=== PATIENT | female | born 1970 | race Caucasian/White ===

== ENCOUNTER 2016-10-27 11:52 | Emergency (ER) | payer MEDICARE, BC ==
[2016-10-27] MEDS ORDERED: Ondansetron 4 MG/2 ML SDV IVPUSH ONE (12:26)
[2016-10-27] MEDS ORDERED: Sodium Chloride 0.9% 1,000 ML IV ONE (12:26)
[2016-10-27] MEDS ORDERED: LORazepam 2 MG/ML MDV IVPUSH ONE (13:20)
--- NOTE | 2016-10-27 13:50 | EDM.PDOC ---
ED HPI GENERAL MEDICAL PROBLEM - General Chief Complaint: General Stated Complaint: RT SIDE PAIN Time Seen by Provider: 10/27/16 12:20 Source of Information: Reports: Patient History Limitations: Reports: No limitations - History of Present Illness INITIAL COMMENTS - FREE TEXT/NARRATIVE: History of present illness: [45-year-old female presenting with acute onset right-sided flank pain patient indicates it started in her right groin and radiated around to her back flank. Patient does acknowledge that this happens when she gets a urinary tract infection. Patient also indicates that she had so much pain today she was unable to take her routine pain medication.] Review of systems: As per history of present illness and below otherwise all systems reviewed and negative. Past medical history: As per history of present illness and as reviewed below otherwise noncontributory. Surgical history: As per history of present illness and as reviewed below otherwise noncontributory. Social history: No reported history of drug or alcohol abuse. Family history: As per history of present illness and as reviewed below otherwise noncontributory. Physical exam: HEENT: Atraumatic, normocephalic, pupils reactive, negative for conjunctival pallor or scleral icterus, mucous membranes moist, throat clear, neck supple, nontender, trachea midline. Lungs: Clear to auscultation, breath sounds equal bilaterally, chest nontender. Heart: S1S2, regular, negative for clicks, rubs, or JVD. Abdomen: Soft, nondistended, nontender. Negative for masses or hepatosplenomegaly. Negative for costovertebral tenderness. Pelvis: Stable nontender. Genitourinary: Deferred. Rectal: Deferred. Extremities: Atraumatic, negative for cords or calf pain. Neurovascular unremarkable. Neuro: Awake, alert, oriented. Cranial nerves II through XII unremarkable. Cerebellum unremarkable. Motor and sensory unremarkable throughout. Exam nonfocal. All assessment is benign save subjective statements of pain in groin and flank. No costovertebral tenderness as noted above and patient's history of present illness is consistent with history of UTIs that she also indicates are not uncommon for her. Patient without any vomiting while in the ED for almost [address] negative, U A. A-, CBC and CMP without note. Diagnostics: [UA, CT without contrast, CBC, CMP] Therapeutics: [] Impression: [Nausea, abdominal pain] Plan: [Zofran followup with his] Definitive disposition and diagnosis as appropriate pending reevaluation and review of above. - Related Data Allergies Allergy/AdvReac Type Severity Reaction Status Date / Time No Known Allergies Allergy Verified 10/27/16 12:14 Home Meds: Home Meds Gabapentin [Neurontin] 600 mg PO BID@0800,1200 06/30/14 [History] Mycophenolate Mofetil [Cellcept] 1,000 mg PO BID 06/30/14 [History] Ondansetron HCl [Zofran] 1 tab PO BID PRN 06/30/14 [History] HYDROmorphone HCl [Dilaudid] 4 mg PO DAILY PRN 04/09/16 [History] predniSONE 10 mg PO DAILY 05/26/16 [History] Citalopram Hydrobromide [Celexa] 40 mg PO DAILY 05/27/16 [History] Gabapentin [Neurontin] 900 mg PO BEDTIME 05/27/16 [History] Pantoprazole [Protonix] 40 mg PO DAILY 05/27/16 [History] Warfarin [Coumadin] 8 mg PO DAILY 05/27/16 [History] Warfarin [Coumadin] 9 mg PO DAILY 05/27/16 [History] oxyCODONE HCl [Oxycodone HCl] 10 mg PO TID 05/27/16 [History] valACYclovir HCl [valACYclovir] 1 gm PO TID PRN 05/27/16 [History] Past Medical History HEENT History: Reports: Sinusitis Cardiovascular History: Reports: Blood clots/VTE/DVT Respiratory History: Reports: PE Gastrointestinal History: Reports: None Genitourinary History: Reports: None 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 Musculoskeletal History: Reports: None Neurological History: Reports: CVA Psychiatric History: Reports: Anxiety Endocrine/Metabolic History: Reports: None Hematologic History: Reports: Anemia Immunologic History: Reports: SLE, Other (see below) Other Immunologic History: Lupus Oncologic (Cancer) History: Reports: Other (see below) Other Oncologic History: precancer cells, melanoma Dermatologic History: Reports: None - Infectious Disease History Infectious Disease History: Reports: Herpes - Past Surgical History Head Surgeries/Procedures: Reports: None HEENT Surgical History: Reports: None Cardiovascular Surgical History: Reports: None GI Surgical History: Reports: None Musculoskeletal Surgical History: Reports: Other (see below) Other Musculoskeletal Surgeries/Procedures:: hand surgery Social & Family History - Family History Family Medical History: Noncontributory HEENT: Reports: None Cardiac: Reports: None Respiratory: Reports: None GI: Reports: None : Reports: None OBGYN: Reports: None Musculoskeletal: Reports: None Neurological: Reports: None Psychiatric: Reports: None Endocrine/Metabolic: Reports: None Hematologic: Reports: None Immunologic: Reports: None Dermatologic: Reports: None Oncologic: Reports: None - Tobacco Use Smoking Status *Q: Never Smoker Second Hand Smoke Exposure: No - Caffeine Use Caffeine Use: Reports: Coffee Other Caffeine Use: occasionally - Alcohol Use Days Per Week of Alcohol Use: 0 - Recreational Drug Use Recreational Drug Use: No ED ROS GENERAL - Review of Systems Review Of Systems: See Below (See history of present illness) ED EXAM, GENERAL - Physical Exam Exam: See Below (See history of present illness) Course - Vital Signs Last Recorded V/S: Last Vital Signs Temp 36.3 C 10/27/16 12:15 Pulse 70 10/27/16 12:15 Resp 24 H 10/27/16 12:15 BP 144/94 H 10/27/16 12:15 Pulse Ox 98 10/27/16 12:15 - Orders/Labs/Meds Orders: Active Orders 24 hr Category Date Time Status Abdomen Pelvis w Cont [CT] Stat Exams 10/27/16 14:37 Taken Labs: Laboratory Tests 10/27/16 10/27/16 10/27/16 Range/Units 12:49 13:30 13:30 WBC 6.41 (4.0-11.0) K/uL RBC 4.38 (4.30-5.90) M/uL Hgb 12.0 (12.0-16.0) g/dL Hct 34.1 L (36.0-46.0) % MCV 77.9 L (80.0-98.0) fL MCH 27.4 (27.0-32.0) pg MCHC 35.2 (31.0-37.0) g/dL RDW Std Deviation 48.8 (28.0-62.0) fl RDW Coeff of Elizabet 18 H (11.0-15.0) % Plt Count 143 L (150-400) K/uL MPV 9.70 (7.40-12.00) fL Neut % (Auto) 72.9 (48.0-80.0) % Lymph % (Auto) 20.1 (16.0-40.0) % [place] % (Auto) 6.2 (0.0-15.0) % Eos % (Auto) 0.5 (0.0-7.0) % Baso % (Auto) 0.3 (0.0-1.5) % Neut # (Auto) 4.7 (1.4-5.7) K/uL Lymph # (Auto) 1.3 (0.6-2.4) K/uL [place] # (Auto) 0.4 (0.0-0.8) K/uL Eos # (Auto) 0.0 (0.0-0.7) K/uL Baso # (Auto) 0.0 (0.0-0.1) K/uL Nucleated RBC % 0.0 /100WBC Nucleated RBCs # 0 K/uL Sodium 140 (136-146) mmol/L Potassium 3.7 (3.5-5.1) mmol/L Chloride 109 (98-110) mmol/L Carbon Dioxide 18 L (21-31) mmol/L BUN 10 (6.0-23.0) mg/dL Creatinine 0.9 (0.6-1.5) mg/dL Est Cr Clr Drug Dosing 73.90 mL/min Estimated GFR (MDRD) > 60.0 ml/min Glucose 99 (60-110) mg/dL Calcium 9.0 (8.8-10.8) mg/dL Total Bilirubin 1.7 H (0.1-1.5) mg/dL AST 21 (5-40) IU/L ALT 32 (8-54) IU/L Alkaline Phosphatase 53 (40-150) Total Protein 6.6 (6.0-8.0) g/dL Albumin 3.8 (3.5-5.0) g/dL Globulin 2.8 (2.0-3.5) g/dL Albumin/Globulin Ratio 1.4 (1.3-2.8) Urine Color YELLOW Urine Appearance CLEAR Urine pH 8.0 (5.0-8.0) Ur Specific [place] 1.010 (1.001-1.035) Urine Protein NEGATIVE (NEGATIVE) mg/dL Urine Glucose (UA) NEGATIVE (NEGATIVE) mg/dL Urine Ketones NEGATIVE (NEGATIVE) mg/dL Urine Occult Blood NEGATIVE (NEGATIVE) Urine Nitrite NEGATIVE (NEGATIVE) Urine Bilirubin NEGATIVE (NEGATIVE) Urine Urobilinogen 0.2 (<2.0) EU/dL Ur Leukocyte Esterase NEGATIVE (NEGATIVE) Urine RBC 0-1 (0-2/HPF) Urine WBC 0-1 (0-5/HPF) Ur Epithelial Cells FEW (NONE-FEW) Urine Bacteria RARE (NEGATIVE) Meds: Medications Discontinued Medications Generic Name Dose Route Start Last Admin Trade Name Frerocky PRN Reason Stop Dose Admin Sodium Chloride 1,000 mls @ 999 mls/hr 10/27/16 12:26 10/27/16 13:08 Normal Saline IV 10/27/16 13:26 999 mls/hr STAT ONE Administration Iopamidol 100 ml 10/27/16 14:40 10/27/16 14:41 Isovue Multipack-370 (76%) IVPUSH 10/27/16 14:41 100 ml ONETIME STA Administration Lorazepam 1 mg 10/27/16 13:20 10/27/16 13:35 Ativan IVPUSH 10/27/16 13:21 1 mg ONETIME ONE Administration Metoclopramide HCl 5 mg 10/27/16 15:52 Reglan IVPUSH 10/27/16 15:53 ONETIME ONE Ondansetron HCl 8 mg 10/27/16 12:26 10/27/16 13:08 Zofran IVPUSH 10/27/16 12:27 8 mg ONETIME ONE Administration Orphenadrine Citrate 60 mg 10/27/16 14:45 10/27/16 15:01 Norflex IM 10/27/16 14:46 60 mg ONETIME ONE Administration Prochlorperazine Edisylate 5 mg 10/27/16 15:14 10/27/16 16:00 Compazine IVPUSH 10/27/16 15:15 5 mg ONETIME ONE Administration Promethazine HCl 25 mg 10/27/16 15:53 Phenergan IM 10/27/16 15:54 ONETIME ONE Departure - Departure Time of Disposition: 16:45 Disposition: Home, Self-Care 01 Condition: good Clinical Impression: Pain Forms: ED Department Discharge Additional Instructions: The following information is given to patients seen in the emergency department who are being discharged to home. This information is to outline your options for follow-up care. We provide all patients seen in our emergency department with a follow-up referral. The need for follow-up, as well as the timing and circumstances, are variable depending upon the specifics of your emergency department visit. If you don't have a primary care physician on staff, we will provide you with a referral. We always advise you to contact your personal physician following an emergency department visit to inform them of the circumstance of the visit and for follow-up with them and/or the need for any referrals to a consulting specialist. The emergency department will also refer you to a specialist when appropriate. This referral assures that you have the opportunity for follow-up care with a specialist. All of these measure are taken in an effort to provide you with optimal care, which includes your follow-up. Under all circumstances we always encourage you to contact your private physician who remains a resource for coordinating your care. When calling for follow-up care, please make the office aware that this follow-up is from your recent emergency room visit. If for any reason you are refused follow-up, please contact the [facility] Emergency Department at and asked to speak to the emergency department charge nurse. Take medication as needed as discussed Followup with PCP tomorrow Return to ED as needed as discussed - My Orders Last 24 Hours: My Active Orders 10/27/16 14:37 Abdomen Pelvis w Cont [CT] Stat - Assessment/Plan Last 24 Hours: My Active Orders 10/27/16 14:37 Abdomen Pelvis w Cont [CT] Stat
[2016-10-27 14:05] LABS: CHLORIDE,CL 109 mmol/L (98-110); SODIUM,NA 140 mmol/L (136-146)
[2016-10-27] MEDS ORDERED: Iopamidol 755 MG/ML 500 ML Multipack Bottle IVPUSH STA (14:40)
[2016-10-27] MEDS ORDERED: Prochlorperazine 10 MG/2 ML SDV IVPUSH ONE (15:14)
[2016-10-27] MEDS ORDERED: Metoclopramide 10 MG/2 ML SDV IVPUSH ONE (15:52)
[2016-10-27] MEDS ORDERED: Promethazine 25 MG/ML SDV IM ONE (15:53)
[2016-10-27 17:09] VITALS: BP 138/100
--- NOTE | 2016-10-28 10:57 | CT ---
EXAM DATE: 10/27/16 PATIENT'S AGE: 45 Patient: GIACOMO GLOVER Facility: [place], [place] Site . Site : 1970 Study: CT Abdomen/Pelvis [id number] 3:39:58 PM Ordering Physician: Doctor Tena Final Report: Abdominal pain right lower quadrant pain. Technique: Noncontrast CT abdomen pelvis with coronal sagittal re-formatted images obtained. No. Comparison: Studies are available. Findings: Heart size is normal. No pericardial effusion or pleural effusion. Minimal basilar atelectasis. Cholelithiasis. No pericholecystic inflammatory change seen. No significant biliary dilatation. Pancreas, adrenal glands appear unremarkable. Splenomegaly measuring 15.5 cm. Suggestion of slight nodularity to the liver contour, nonspecific however can be seen with cirrhosis. No ascites. Kidneys are unremarkable. The appendix is not seen however no inflammatory changes is visualized. Urinary bladder is unremarkable. There is a round circumscribed lytic lesion in the L5 vertebral body probably representing a hemangioma. No suspicious bony lesions seen. Impression: 1. No acute findings in the abdomen or pelvis. Appendix is not seen however no inflammatory change in the right lower quadrant. 2. Splenomegaly measuring 15.5 cm. 3. Suggestion of subtle nodularity to the liver contour which can be seen with cirrhosis. Dictated by Mary Rashid MD @ Oct 27 2016 3:44PM (Electronic Signature) Report Signed by Proxy and Original Signed Document filed in the Medical Record. [email or web address]
== END 2016-10-27 17:05 | disposition home or self-care (01) ==
LOC: MW.ED 11:52
DX: R10.9 Unspecified abdominal pain (principal); K76.9 Liver disease, unspecified; R16.1 Splenomegaly, not elsewhere classified; Z86.718 Personal history of other venous thrombosis and embolism; Z86.711 Personal history of pulmonary embolism; Z79.01 Long term (current) use of anticoagulants; Z86.73 Personal history of transient ischemic attack (TIA), and cerebral infarction without residual deficits; F41.9 Anxiety disorder, unspecified; D64.9 Anemia, unspecified; Z79.899 Other long term (current) drug therapy
CPT/HCPCS: 36415; 74177; 80053; 81001; 85025; 96361; 96372; 96374; 96375; 99284; J0780; J2060; J2360; J2405; J7040; Q9967

== ENCOUNTER → 2016-11-05 | Outpatient (CLI) | payer MEDICARE, BC | LOC: MW.CHGS 16:12 | PROVIDERS: ATTEND Surgery | DX: E80.6 Other disorders of bilirubin metabolism (principal); K80.20 Calculus of gallbladder without cholecystitis without obstruction; M32.9 Systemic lupus erythematosus, unspecified | CPT/HCPCS: 36415; 82247; 82248; 99204 ==

== ENCOUNTER → 2016-11-25 | Outpatient (CLI) | payer MEDICARE, BC | LOC: MW.CHPM 08:00 | PROVIDERS: ATTEND Anesthesiology | DX: G89.29 Other chronic pain (principal); M54.5 Low back pain; Z79.891 Long term (current) use of opiate analgesic | CPT/HCPCS: 99214 ==

== ENCOUNTER 2016-12-13 22:35 | Emergency (ER) | payer MEDICARE, BC ==
[2016-12-13] MEDS ORDERED: ALPRAZolam 0.5 MG Tab PO ONE (23:06)
[2016-12-13] MEDS ORDERED: Acetaminophen 500 MG Tab PO ONE (23:28)
--- NOTE | 2016-12-13 23:34 | EDM.PDOC ---
ED HPI GENERAL MEDICAL PROBLEM - General Chief Complaint: Fever Stated Complaint: FEVER/CHILLS HAD SURGERY Time Seen by Provider: 12/13/16 22:50 Source of Information: Reports: Patient, Family History Limitations: Reports: No Limitations - History of Present Illness INITIAL COMMENTS - FREE TEXT/NARRATIVE: HISTORY AND PHYSICAL: History of present illness: [45-year-old female with a history of lupus and prior DVT/PE on Coumadin with which she is compliant, now presents emergency department complaining of sinus congestion and fever. Patient reports that she perceives she has some urinary urgency but no vaginal bleeding or discharge. No headache or stiff neck. No productive cough. Patient denies abdominal pain. Normal bowel habits] Review of systems: As per history of present illness and below otherwise all systems reviewed and negative. Past medical history: As per history of present illness and as reviewed below otherwise noncontributory. Surgical history: As per history of present illness and as reviewed below otherwise noncontributory. Social history: No reported history of drug or alcohol abuse. Family history: As per history of present illness and as reviewed below otherwise noncontributory. Physical exam: Patient is alert well-appearing, vigorous and comfortable appearing with supple neck normal respiratory rate and pulse ox on M.D. exam HEENT: Atraumatic, normocephalic, pupils reactive, negative for conjunctival pallor or scleral icterus, mucous membranes moist, throat clear, neck supple, nontender, trachea midline. Lungs: Clear to auscultation, breath sounds equal bilaterally, chest nontender. Heart: S1S2, regular, negative for clicks, rubs, or JVD. Abdomen: Soft, nondistended, nontender. Negative for masses or hepatosplenomegaly. Negative for costovertebral tenderness. Pelvis: Stable nontender. Genitourinary: Deferred. Rectal: Deferred. Extremities: Atraumatic, negative for cords or calf pain. Neurovascular unremarkable. Neuro: Awake, alert, oriented. Cranial nerves II through XII unremarkable. Cerebellum unremarkable. Motor and sensory unremarkable throughout. Exam nonfocal. Diagnostics: [Urinalysis negative] Therapeutics: [] Impression: [] Plan: [Signs and symptoms consistent with viral syndrome with mild fever. Patient is well-appearing supple neck. No evidence of bacterial infection. Urinalysis negative. No further workup or treatment indicated. Patient aware to use gauze needed for fevers and follow-up with PCP tomorrow. She and her mother agree with outpatient follow-up and strict return precautions given Definitive disposition and diagnosis as appropriate pending reevaluation and review of above. body aches Pain Score (Numeric/FACES): 5 - Related Data Allergies Allergy/AdvReac Type Severity Reaction Status Date / Time No Known Allergies Allergy Verified 10/27/16 12:14 Home Meds: Home Meds Gabapentin [Neurontin] 600 mg PO BID@0800,1200 06/30/14 [History] Mycophenolate Mofetil [Cellcept] 1,000 mg PO BID 06/30/14 [History] Ondansetron HCl [Zofran] 1 tab PO BID PRN 06/30/14 [History] HYDROmorphone HCl [Dilaudid] 4 mg PO DAILY PRN 04/09/16 [History] predniSONE 10 mg PO DAILY 05/26/16 [History] Citalopram Hydrobromide [Celexa] 40 mg PO DAILY 05/27/16 [History] Gabapentin [Neurontin] 900 mg PO BEDTIME 05/27/16 [History] Pantoprazole [Protonix] 40 mg PO DAILY 05/27/16 [History] Warfarin [Coumadin] 8 mg PO DAILY 05/27/16 [History] Warfarin [Coumadin] 9 mg PO DAILY 05/27/16 [History] oxyCODONE HCl [Oxycodone HCl] 10 mg PO TID 05/27/16 [History] valACYclovir HCl [valACYclovir] 1 gm PO TID PRN 05/27/16 [History] Past Medical History HEENT History: Reports: Sinusitis Cardiovascular History: Reports: Blood Clots/VTE/DVT Respiratory History: Reports: PE Gastrointestinal History: Reports: None Genitourinary History: Reports: None [employer] SPECIALIST History: Reports: None Musculoskeletal History: Reports: None Neurological History: Reports: CVA Psychiatric History: Reports: Anxiety Endocrine/Metabolic History: Reports: None Hematologic History: Reports: Anemia Immunologic History: Reports: SLE, Other (See Below) Other Immunologic History: Lupus Oncologic (Cancer) History: Reports: Other (See Below) Other Oncologic History: precancer cells, melanoma Dermatologic History: Reports: None - Infectious Disease History Infectious Disease History: Reports: Herpes - Past Surgical History Head Surgeries/Procedures: Reports: None HEENT Surgical History: Reports: None GI Surgical History: Reports: Cholecystectomy Musculoskeletal Surgical History: Reports: Other (See Below) Social & Family History - Family History Family Medical History: Noncontributory HEENT: Reports: None Cardiac: Reports: None Respiratory: Reports: None GI: Reports: None : Reports: None OBGYN: Reports: None Musculoskeletal: Reports: None Neurological: Reports: None Psychiatric: Reports: None Endocrine/Metabolic: Reports: None Hematologic: Reports: None Immunologic: Reports: None Dermatologic: Reports: None Oncologic: Reports: None - Tobacco Use Smoking Status *Q: Never Smoker Second Hand Smoke Exposure: No - Caffeine Use Caffeine Use: Reports: Coffee Other Caffeine Use: occasionally - Alcohol Use Days Per Week of Alcohol Use: 0 - Recreational Drug Use Recreational Drug Use: No ED ROS GENERAL - Review of Systems Review Of Systems: See Below (History of present illness) ED EXAM, GENERAL - Physical Exam Exam: See Below (History of present illness) Course - Vital Signs Last Recorded V/S: Last Vital Signs Temp 37.6 C 12/14/16 00:31 Pulse 108 H 12/14/16 00:31 Resp 16 12/14/16 00:31 BP 120/68 12/14/16 00:31 Pulse Ox 98 12/14/16 00:31 - Orders/Labs/Meds Labs: Laboratory Tests 12/13/16 Range/Units 23:20 Urine Color YELLOW Urine Appearance CLEAR Urine pH 8.5 H (5.0-8.0) Ur Specific [place] 1.010 (1.001-1.035) Urine Protein NEGATIVE (NEGATIVE) mg/dL Urine Glucose (UA) NEGATIVE (NEGATIVE) mg/dL Urine Ketones NEGATIVE (NEGATIVE) mg/dL Urine Occult Blood SMALL H (NEGATIVE) Urine Nitrite NEGATIVE (NEGATIVE) Urine Bilirubin NEGATIVE (NEGATIVE) Urine Urobilinogen 2.0 H (<2.0) EU/dL Ur Leukocyte Esterase SMALL (NEGATIVE) Urine RBC 4-10 (0-2/HPF) Urine WBC 2-6 (0-5/HPF) Ur Epithelial Cells FEW (NONE-FEW) Urine Bacteria FEW (NEGATIVE) Meds: Medications Discontinued Medications Generic Name Dose Route Start Last Admin Trade Name Freq PRN Reason Stop Dose Admin Acetaminophen 1,000 mg 12/13/16 23:28 12/13/16 23:41 Tylenol Extra Strength PO 12/13/16 23:29 1,000 mg ONETIME ONE Administration Alprazolam 1 mg 12/13/16 23:06 12/13/16 23:13 Xanax PO 12/13/16 23:07 1 mg NOW ONE Administration Departure - Departure Time of Disposition: 00:19 Disposition: Home, Self-Care 01 Condition: good Clinical Impression: Viral syndrome, Fever - Discharge Information Instructions: Fever, Adult, [id number] Referrals: Ruslan Adams MD [Primary Care Provider] - Forms: ED Department Discharge Additional Instructions: Your symptoms suggest that you have a viral syndrome today. Your intermittent fevers are associated with this and can be treated with Tylenol every 4 hours as needed. Rest and drink plenty of fluids. Your urinalysis did not suggest infection. Follow-up your tomorrow for reevaluation and return immediately for new severe or worsening symptoms
[2016-12-14 00:33] VITALS: BP 120/68
== END 2016-12-14 00:31 | disposition home or self-care (01) ==
LOC: MW.ED 22:35
DX: B34.9 Viral infection, unspecified (principal); F41.9 Anxiety disorder, unspecified; Z86.711 Personal history of pulmonary embolism; Z86.718 Personal history of other venous thrombosis and embolism; Z79.01 Long term (current) use of anticoagulants; Z79.899 Other long term (current) drug therapy; Z86.73 Personal history of transient ischemic attack (TIA), and cerebral infarction without residual deficits; Z86.2 Personal history of diseases of the blood and blood-forming organs and certain disorders involving the immune mechanism; Z85.820 Personal history of malignant melanoma of skin; Z90.49 Acquired absence of other specified parts of digestive tract
CPT/HCPCS: 81001; 99283; A9270; 99282

== ENCOUNTER 2017-02-27 13:44 | Inpatient (IN) | payer MEDICARE, BC ==
[2017-02-27] MEDS ORDERED: HYDROmorphone 2 MG/ML Syringe IVPUSH ONE (13:57)
[2017-02-27] MEDS ORDERED: methylPREDNISolone Sodium Succinate 125 MG/2 ML SDV IVPUSH ONE (13:57)
[2017-02-27] MEDS ORDERED: Sodium Chloride 0.9% 1,000 ML IV ONE (13:57)
[2017-02-27] MEDS ORDERED: Ondansetron 4 MG/2 ML SDV IVPUSH ONE (13:57)
--- NOTE | 2017-02-27 14:34 | EDM.PDOC ---
ED HPI GENERAL MEDICAL PROBLEM - General Chief Complaint: General Stated Complaint: SOLLOWEN THROAT Time Seen by Provider: 02/27/17 13:48 - History of Present Illness INITIAL COMMENTS - FREE TEXT/NARRATIVE: HISTORY AND PHYSICAL: History of present illness: Patient 40 sutural female history of systemic lupus erythematosus who presents with a concern of exacerbation of his binaural last several days she has had this many times in the past requiring admission for IV steroids and analgesia these exacerbations manifested as facial swelling worsening rash with ulcerations of her oropharynx and face arthralgias and myalgias. She denies fever chills nausea vomiting shortness of breath or chest pain Review of systems: As per history of present illness and below otherwise all systems reviewed and negative. Past medical history: As per history of present illness and as reviewed below otherwise noncontributory. Surgical history: As per history of present illness and as reviewed below otherwise noncontributory. Social history: No reported history of drug or alcohol abuse. Family history: As per history of present illness and as reviewed below otherwise noncontributory. Physical exam: HEENT: Atraumatic, normocephalic, pupils reactive, negative for conjunctival pallor or scleral icterus, mucous membranes moist, throat clear, neck supple, nontender, trachea midline. Macular rash noted bilateral upper cheeks and periorbital edema she does have some areas of excoriation noted. Lungs: Clear to auscultation, breath sounds equal bilaterally, chest nontender. Heart: S1S2, regular, negative for clicks, rubs, or JVD. Abdomen: Soft, nondistended, nontender. Negative for masses or hepatosplenomegaly. Negative for costovertebral tenderness. Pelvis: Stable nontender. Genitourinary: Deferred. Rectal: Deferred. Extremities: Atraumatic, negative for cords or calf pain. Neurovascular unremarkable. Neuro: Awake, alert, oriented. Cranial nerves II through XII unremarkable. Cerebellum unremarkable. Motor and sensory unremarkable throughout. Exam nonfocal. Diagnostics: CBC CMP chest x-ray EKG UA Therapeutics: Normal saline 1 L bolus Dilaudid 1 mg IV Zofran 4 mg IV Impression: #1 systemic lupus erythematosus with exacerbation Definitive disposition and diagnosis as appropriate pending reevaluation and review of above. Generalized Pain Score (Numeric/FACES): 10 - Related Data Allergies Allergy/AdvReac Type Severity Reaction Status Date / Time No Known Allergies Allergy Verified 02/27/17 14:00 Home Meds: Home Meds Gabapentin [Neurontin] 600 mg PO TID 06/30/14 [History] Mycophenolate Mofetil [Cellcept] 1,000 mg PO BID 06/30/14 [History] Ondansetron HCl [Zofran] 4 mg PO BID PRN 06/30/14 [History] Citalopram Hydrobromide [Celexa] 40 mg PO DAILY 05/27/16 [History] Pantoprazole [Protonix] 40 mg PO DAILY 05/27/16 [History] Warfarin [Coumadin] 9 mg PO DAILY 05/27/16 [History] ClonazePAM [KlonoPIN] 0.5 mg PO BID PRN 02/27/17 [History] Famciclovir 500 mg PO BID PRN 02/27/17 [History] predniSONE [Prednisone] 5 mg PO DAILY 02/27/17 [History] Past Medical History HEENT History: Reports: Sinusitis Cardiovascular History: Reports: Blood Clots/VTE/DVT Respiratory History: Reports: PE Gastrointestinal History: Reports: None Genitourinary History: Reports: None NURSE PRACTITIONER ADULT History: Reports: None Musculoskeletal History: Reports: None Neurological History: Reports: CVA Psychiatric History: Reports: Anxiety Endocrine/Metabolic History: Reports: None Hematologic History: Reports: Anemia Immunologic History: Reports: SLE, Other (See Below) Other Immunologic History: Lupus Oncologic (Cancer) History: Reports: Other (See Below) Other Oncologic History: precancer cells, melanoma Dermatologic History: Reports: None - Infectious Disease History Infectious Disease History: Reports: Herpes - Past Surgical History Head Surgeries/Procedures: Reports: None HEENT Surgical History: Reports: None GI Surgical History: Reports: Cholecystectomy Musculoskeletal Surgical History: Reports: Other (See Below) Social & Family History - Family History Family Medical History: Noncontributory HEENT: Reports: None Cardiac: Reports: None Respiratory: Reports: None GI: Reports: None : Reports: None OBGYN: Reports: None Musculoskeletal: Reports: None Neurological: Reports: None Psychiatric: Reports: None Endocrine/Metabolic: Reports: None Hematologic: Reports: None Immunologic: Reports: None Dermatologic: Reports: None Oncologic: Reports: None - Tobacco Use Smoking Status *Q: Never Smoker Second Hand Smoke Exposure: No - Caffeine Use Caffeine Use: Reports: None Other Caffeine Use: occasionally - Alcohol Use Days Per Week of Alcohol Use: 0 - Recreational Drug Use Recreational Drug Use: No ED ROS GENERAL - Review of Systems Review Of Systems: ROS reveals no pertinent complaints other than HPI. ED EXAM, GENERAL - Physical Exam Exam: See Below (See dictation) Course - Vital Signs Last Recorded V/S: Last Vital Signs Temp 36.5 C 02/27/17 13:55 Pulse 63 02/27/17 15:39 Resp 14 02/27/17 15:39 BP 150/81 H 02/27/17 15:39 Pulse Ox 94 L 02/27/17 15:39 - Orders/Labs/Meds Orders: Active Orders 24 hr Category Date Time Status EKG Documentation Completion [RC] STAT Care 02/27/17 13:57 Active Labs: Laboratory Tests 02/27/17 02/27/17 02/27/17 Range/Units 14:06 14:06 14:06 WBC 7.97 (4.0-11.0) K/uL RBC 4.09 L (4.30-5.90) M/uL Hgb 11.4 L (12.0-16.0) g/dL Hct 32.4 L (36.0-46.0) % MCV 79.2 L (80.0-98.0) fL MCH 27.9 (27.0-32.0) pg MCHC 35.2 (31.0-37.0) g/dL RDW Std Deviation 50.2 (28.0-62.0) fl RDW Coeff of Elizabet 18 H (11.0-15.0) % Plt Count 103 L (150-400) K/uL Neut % (Auto) 55.2 (48.0-80.0) % Lymph % (Auto) 37.3 (16.0-40.0) % Mccone % (Auto) 7.3 (0.0-15.0) % Eos % (Auto) 0.1 (0.0-7.0) % Baso % (Auto) 0.1 (0.0-1.5) % Neut # (Auto) 4.4 (1.4-5.7) K/uL Lymph # (Auto) 3.0 H (0.6-2.4) K/uL Mccone # (Auto) 0.6 (0.0-0.8) K/uL Eos # (Auto) 0.0 (0.0-0.7) K/uL Baso # (Auto) 0.0 (0.0-0.1) K/uL Nucleated RBC % 0.0 /100WBC Nucleated RBCs # 0 K/uL INR 2.41 H (0.86-1.11) Sodium 142 (136-146) mmol/L Potassium 3.8 (3.5-5.1) mmol/L Chloride 105 (98-110) mmol/L Carbon Dioxide 25 (21-31) mmol/L BUN 12 (6.0-23.0) mg/dL Creatinine 1.0 (0.6-1.5) mg/dL Est Cr Clr Drug Dosing 65.81 mL/min Estimated GFR (MDRD) 59.7 ml/min Glucose 116 H (60-110) mg/dL Calcium 8.8 (8.8-10.8) mg/dL Total Bilirubin 2.1 H (0.1-1.5) mg/dL AST 23 (5-40) IU/L ALT 17 (8-54) IU/L Alkaline Phosphatase 57 (40-150) Total Protein 6.7 (6.0-8.0) g/dL Albumin 4.0 (3.5-5.0) g/dL Globulin 2.7 (2.0-3.5) g/dL Albumin/Globulin Ratio 1.5 (1.3-2.8) Urine Color Urine Appearance Urine pH (5.0-8.0) Ur Specific [place] (1.001-1.035) Urine Protein (NEGATIVE) mg/dL Urine Glucose (UA) (NEGATIVE) mg/dL Urine Ketones (NEGATIVE) mg/dL Urine Occult Blood (NEGATIVE) Urine Nitrite (NEGATIVE) Urine Bilirubin (NEGATIVE) Urine Urobilinogen (<2.0) EU/dL Ur Leukocyte Esterase (NEGATIVE) 02/27/17 Range/Units 14:16 WBC (4.0-11.0) K/uL RBC (4.30-5.90) M/uL Hgb (12.0-16.0) g/dL Hct (36.0-46.0) % MCV (80.0-98.0) fL MCH (27.0-32.0) pg MCHC (31.0-37.0) g/dL RDW Std Deviation (28.0-62.0) fl RDW Coeff of Elizabet (11.0-15.0) % Plt Count (150-400) K/uL Neut % (Auto) (48.0-80.0) % Lymph % (Auto) (16.0-40.0) % Mccone % (Auto) (0.0-15.0) % Eos % (Auto) (0.0-7.0) % Baso % (Auto) (0.0-1.5) % Neut # (Auto) (1.4-5.7) K/uL Lymph # (Auto) (0.6-2.4) K/uL Mccone # (Auto) (0.0-0.8) K/uL Eos # (Auto) (0.0-0.7) K/uL Baso # (Auto) (0.0-0.1) K/uL Nucleated RBC % /100WBC Nucleated RBCs # K/uL INR (0.86-1.11) Sodium (136-146) mmol/L Potassium (3.5-5.1) mmol/L Chloride (98-110) mmol/L Carbon Dioxide (21-31) mmol/L BUN (6.0-23.0) mg/dL Creatinine (0.6-1.5) mg/dL Est Cr Clr Drug Dosing mL/min Estimated GFR (MDRD) ml/min Glucose (60-110) mg/dL Calcium (8.8-10.8) mg/dL Total Bilirubin (0.1-1.5) mg/dL AST (5-40) IU/L ALT (8-54) IU/L Alkaline Phosphatase (40-150) Total Protein (6.0-8.0) g/dL Albumin (3.5-5.0) g/dL Globulin (2.0-3.5) g/dL Albumin/Globulin Ratio (1.3-2.8) Urine Color YELLOW Urine Appearance CLEAR Urine pH 6.5 (5.0-8.0) Ur Specific [place] <= 1.005 (1.001-1.035) Urine Protein NEGATIVE (NEGATIVE) mg/dL Urine Glucose (UA) NEGATIVE (NEGATIVE) mg/dL Urine Ketones NEGATIVE (NEGATIVE) mg/dL Urine Occult Blood SMALL H (NEGATIVE) Urine Nitrite NEGATIVE (NEGATIVE) Urine Bilirubin NEGATIVE (NEGATIVE) Urine Urobilinogen 1.0 (<2.0) EU/dL Ur Leukocyte Esterase TRACE (NEGATIVE) Meds: Medications Discontinued Medications Generic Name Dose Route Start Last Admin Trade Name Freq PRN Reason Stop Dose Admin Hydromorphone HCl 1 mg 02/27/17 13:57 02/27/17 14:20 Dilaudid IVPUSH 02/27/17 13:58 1 mg ONETIME ONE Administration Sodium Chloride 1,000 mls @ 999 mls/hr 02/27/17 13:57 02/27/17 14:19 Normal Saline IV 02/27/17 14:57 999 mls/hr STAT ONE Administration Methylprednisolone Sodium Succinate 125 mg 02/27/17 13:57 02/27/17 14:20 Solu-Medrol IVPUSH 02/27/17 13:58 125 mg ONETIME ONE Administration Ondansetron HCl 4 mg 02/27/17 13:57 02/27/17 14:19 Zofran IVPUSH 02/27/17 13:58 4 mg ONETIME ONE Administration Departure - Departure Time of Disposition: 15:48 Disposition: Refer to Observation Condition: Good Clinical Impression: SLE (systemic lupus erythematosus) - Discharge Information - My Orders Last 24 Hours: My Active Orders 02/27/17 13:57 EKG Documentation Completion [RC] STAT - Assessment/Plan Last 24 Hours: My Active Orders 02/27/17 13:57 EKG Documentation Completion [RC] STAT
--- NOTE | 2017-02-27 15:00 | CR ---
EXAMINATION: Portable chest radiograph. HISTORY: Shortness of breath. FINDINGS: The trachea is midline. The cardiomediastinal silhouette is within normal limits. No pulmonary infilt rates, effusions or pneumothorax. Osseous structures appear unremarkable. IMPRESSION: No acute cardiopulmonary process.
[2017-02-27] MEDS ORDERED: Sodium Chloride 0.9% 2.5 ML Syringe FLUSH PRN (17:13)
[2017-02-27] MEDS ORDERED: Ondansetron 4 MG/2 ML SDV IVPUSH PRN (17:13)
[2017-02-27] MEDS ORDERED: Acetaminophen 325 MG Tab PO PRN (17:13)
[2017-02-27] MEDS ORDERED: Sodium Chloride 0.9% 10 ML Syringe FLUSH PRN (17:13)
--- NOTE | 2017-02-27 17:49 | PCM.HP ---
H&P History of Present Illness - General Date of Service: 02/27/17 Admit Problem/Dx: Admission Diagnosis/Problem Admission Diagnosis/Problem Systemic lupus erythematosus - History of Present Illness Initial Comments - Free Text/Narative: 46-year-old female with a past medical significant for systemic SLE with multiple flareups. Patient in the past has previously had a stroke secondary to her SLE and is on Coumadin therapy. States her most recent flareup started about 1 week ago initially started with pain on the bridge of her nose which then extended to the bilateral eyes and then down her face. Patient states that she started to feel swelling and increased pressure. 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 Patient also states that now she is developing bilateral. Sensation of her eyes as well as pain at the back arise along with headaches. Patient also states that she started to have a ringing bilateral ears for the past couple of days as well which is new for her. Patient is on prednisone 5 mg, CellCept 1000 mg twice a day, Coumadin, gabapentin 600 mg morning and 900 mg in the evening. Patient increased her prednisone from 5 mg to 40 mg by day 4 of flareup starting however she still was not able to obtain proper control of flareup and pain control and so she came into the ER today. In the ER patient received Solu-Medrol 125 mg 1 time as well as Dilaudid for pain control. His CBC and CMP was done which showed a thrombocytopenia of [id number]. Chest x-ray showed no acute cardiopulmonary findings. Patient was subsequently admitted to the floor for acute SLE flareup. Onset of Symptoms: Reports: Gradual Generalized Pain Score (Numeric/FACES): 10 - Related Data Allergies/Adverse Reactions: Allergies Allergy/AdvReac Type Severity Reaction Status Date / Time No Known Allergies Allergy Verified 02/27/17 14:00 Home Medications: Home Meds Gabapentin [Neurontin] 600 mg PO TID 06/30/14 [History] Mycophenolate Mofetil [Cellcept] 1,000 mg PO BID 06/30/14 [History] Ondansetron HCl [Zofran] 4 mg PO BID PRN 06/30/14 [History] Citalopram Hydrobromide [Celexa] 40 mg PO DAILY 11/21/16 [History] Pantoprazole [Protonix] 40 mg PO DAILY 05/27/16 [History] Warfarin [Coumadin] 9 mg PO DAILY 05/27/16 [History] ClonazePAM [KlonoPIN] 0.5 mg PO BID PRN 02/27/17 [History] Famciclovir 500 mg PO BID PRN 02/27/17 [History] predniSONE [Prednisone] 5 mg PO DAILY 02/27/17 [History] Past Medical History HEENT History: Reports: Sinusitis, Other (See Below) Other HEENT History: mouth ulcers Cardiovascular History: Reports: Blood Clots/VTE/DVT Respiratory History: Reports: PE Gastrointestinal History: Reports: None Genitourinary History: Reports: None CANVAS REPAIRER History: Reports: None Musculoskeletal History: Reports: None Neurological History: Reports: CVA Psychiatric History: Reports: Anxiety Endocrine/Metabolic History: Reports: None Hematologic History: Reports: Anemia Immunologic History: Reports: SLE, Other (See Below) Other Immunologic History: Lupus (SLE) Oncologic (Cancer) History: Reports: Other (See Below) Other Oncologic History: precancer cells, melanoma Dermatologic History: Reports: None - Infectious Disease History Infectious Disease History: Reports: Herpes - Past Surgical History Head Surgeries/Procedures: Reports: None HEENT Surgical History: Reports: None GI Surgical History: Reports: Cholecystectomy Musculoskeletal Surgical History: Reports: Other (See Below) Other Musculoskeletal Surgeries/Procedures:: 3 hand left surgeries Social & Family History - Family History Family Medical History: Noncontributory HEENT: Reports: None Cardiac: Reports: None Respiratory: Reports: None GI: Reports: None : Reports: None OBGYN: Reports: None Musculoskeletal: Reports: None Neurological: Reports: None Psychiatric: Reports: None Endocrine/Metabolic: Reports: None Hematologic: Reports: None Immunologic: Reports: None Dermatologic: Reports: None Oncologic: Reports: None - Tobacco Use Smoking Status *Q: Never Smoker Second Hand Smoke Exposure: No - Caffeine Use Caffeine Use: Reports: Coffee Other Caffeine Use: occasionally - Alcohol Use Days Per Week of Alcohol Use: 0 - Recreational Drug Use Recreational Drug Use: No H&P Review of Systems - Review of Systems: Review Of Systems: ROS reveals no pertinent complaints other than HPI. Exam - Exam Exam: See Below - Vital Signs Vital Signs: Last Vital Signs Temp 36.8 C 02/27/17 16:50 Pulse 56 L 02/27/17 16:50 Resp 15 02/27/17 16:50 BP 166/77 H 02/27/17 16:50 Pulse Ox 94 L 02/27/17 16:50 Weight: 108.862 kg - Exam General: Alert, Oriented, Cooperative, Mild Distress HEENT: Other (Patient complaining of burning sensation bilateral eyes as well as pain in the back of her eyes, patient also complaining of global headache. Patient denies blurry vision or difficulty seeing. Patient states mild photophobia, patient also has a discoid rash developing bilateral cheeks) Neck: Other (Patient states difficulty swallowing secondary to recurrent SLE ulcers.) Lungs: Clear to Auscultation, Normal Respiratory Effort Cardiovascular: Regular Rate, Regular Rhythm GI/Abdominal Exam: Normal Bowel Sounds Extremities: Normal Inspection, Other (Patient complaining of arthralgias ) - Patient Data Result Diagrams: 02/27/17 14:06 02/27/17 14:06 *Q Meaningful Use (ADM) - VTE *Q VTE Criteria *Q: - Stroke *Q Stroke Criteria *Q: - AMI *Q AMI Criteria *Q: Problem List Initiated/Reviewed/Updated: Yes Orders Last 24hrs: Active Orders 24 hr Category Date Time Status Patient Status [ADT] Routine ADT 02/27/17 17:13 Active Patient Status [ADT] Stat ADT 02/27/17 15:48 Active Antiembolic Devices [RC] PER UNIT ROUTINE Care 02/27/17 17:18 Active Height and Weight [RC] UPON Care 02/27/17 17:13 Active Intake and Output [RC] QSHIFT Care 02/27/17 17:16 Active Notify Provider Vital Signs [RC] ASDIRECTED Care 02/27/17 17:17 Active Oxygen Therapy [RC] PRN Care 02/27/17 17:13 Active Pulse Oximetry [RC] PRN Care 02/27/17 17:16 Active Up With Assistance [RC] ASDIRECTED Care 02/27/17 17:13 Active VTE/DVT Education [RC] PER UNIT ROUTINE Care 02/27/17 17:13 Active Vital Signs [RC] Q4H Care 02/27/17 17:13 Active Regular Diet [DIET] Diet 02/27/17 Breakfast Active CBC WITH AUTO DIFF [HEME] AM Lab 02/28/17 05:11 Ordered COMPREHENSIVE METABOLIC PN,CMP [CHEM] AM Lab 02/28/17 05:11 Ordered CRP [C-REACTIVE PROTEIN] [CHEM] Routine Lab 02/27/17 14:06 Received LACTIC ACID,WHOLE BLOOD [BG] Routine Lab 02/27/17 17:12 Ordered SEDIMENTATION RATE AUTO [HEME] Routine Lab 02/27/17 14:06 Received Acetaminophen [Tylenol] Med 02/27/17 17:13 Ordered 650 mg PO Q4H PRN Famciclovir Med 02/27/17 17:21 Ordered 500 mg PO BID PRN Gabapentin Med 02/27/17 22:00 Ordered 600 mg PO TID HYDROmorphone [Dilaudid] Med 02/27/17 17:13 Ordered 1 mg IVPUSH Q2H PRN Mycophenolate Mofetil Med 02/27/17 17:30 Ordered 1,000 mg PO BID Ondansetron [Zofran] Med 02/27/17 17:13 Ordered 4 mg IVPUSH Q4H PRN Pantoprazole [ProTONIX] Med 02/27/17 17:30 Ordered 40 mg PO DAILY Sodium Chloride 0.9% [Normal Saline] 1,000 ml Med 02/27/17 17:15 Ordered IV ASDIRECTED Sodium Chloride 0.9% [Saline Flush] Med 02/27/17 17:13 Ordered 10 ml FLUSH ASDIRECTED PRN Sodium Chloride 0.9% [Saline Flush] Med 02/27/17 17:13 Ordered 2.5 ml FLUSH ASDIRECTED PRN Warfarin [Coumadin] Med 02/28/17 09:00 Ordered 9 mg PO DAILY methylPREDNISolone Sod Succ [Solu-MEDROL] Med 02/27/17 17:15 Ordered 125 mg IVPUSH Q6H Peripheral IV Insertion Adult [OM.PC] Routine Oth 02/27/17 17:13 Ordered Saline Lock Insert [OM.PC] Routine Oth 02/27/17 17:13 Ordered Sequential Compression Device [OM.PC] Per Unit Routine Oth 02/27/17 17:17 Ordered Resuscitation Status Routine Resus Stat 02/27/17 17:13 Ordered Medication Orders Acetaminophen (Tylenol) 650 mg PO Q4H PRN PRN Reason: Pain (Mild 1-3)/fever Hydromorphone HCl (Dilaudid) 1 mg IVPUSH Q2H PRN PRN Reason: Pain (severe 7-10) Sodium Chloride (Normal Saline) 1,000 mls @ 125 mls/hr IV ASDIRECTED [facility] Methylprednisolone Sodium Succinate (Solu-Medrol) 125 mg IVPUSH Q6H [facility] Non-Formulary Medication (Famciclovir) 500 mg PO BID PRN PRN Reason: Other Non-Formulary Medication (Mycophenolate Mofetil) 1,000 mg PO BID [facility] Non-Formulary Medication (Gabapentin) 600 mg PO TID [facility] Ondansetron HCl (Zofran) 4 mg IVPUSH Q4H PRN PRN Reason: Nausea/Vomiting Pantoprazole Sodium (Protonix) 40 mg PO DAILY [facility] Sodium Chloride (Saline Flush) 10 ml FLUSH ASDIRECTED PRN PRN Reason: Keep Vein Open Sodium Chloride (Saline Flush) 2.5 ml FLUSH ASDIRECTED PRN PRN Reason: Keep Vein Open Warfarin Sodium (Coumadin) 9 mg PO DAILY [facility] Assessment/Plan Comment:: Assessment and plan: 46-year-old female with past medical history significant for SLE coming in with acute SLE flareup symptoms including discoid lupus erythematous, difficulty swallowing, headaches, eye discomfort. #1. Acute SLE flareup with systemic findings including arthralgia, eye discomfort, difficulty swallowing secondary to SLE ulcers, cutaneous findings - Solu-Medrol 125 mg every 6 hours, continuation of home medication including CellCept 1000 mg twice a day, Neurontin 600 mg 3 times a day -Continue patient's home medication of Coumadin, SCDs for DVT prophylaxis - Pain control with Dilaudid 1 mg every 4 hours when necessary - I spoken with patient's broodmare foreman Dr. Bloom who states that he had put the patient in the past on hydroxychloroquine however he believes that the patient has possibly developed retinopathy secondary to medication side effect he recommends patient have outpatient follow-up with ophthalmology. -ESR, CRP, lactic acid, CBC, CMP -Patient admitted inpatient status anticipated to stay greater than 2 midnights.
[2017-02-27] MEDS: Mycophenolate Mofetil 250 MG Cap PO SCH ×2 (17:55→22:55)
[2017-02-27] MEDS: Pantoprazole 40 MG Tab.CR PO SCH (17:55)
[2017-02-27] MEDS: methylPREDNISolone Sodium Succinate 125 MG/2 ML SDV IVPUSH SCH ×2 (17:56→22:55)
[2017-02-27] MEDS: HYDROmorphone 2 MG/ML Syringe IVPUSH PRN ×2 (18:13→23:07)
[2017-02-27] MEDS: Sodium Chloride 0.9% 1,000 ML IV SCH (19:12)
[2017-02-27] MEDS: Gabapentin 300 MG Cap PO SCH (22:54)
[2017-02-28] MEDS: Sodium Chloride 0.9% 1,000 ML IV SCH ×3 (03:19→21:21)
[2017-02-28 03:22] LABS: CHLORIDE,CL 106 mmol/L (98-110); SODIUM,NA 139 mmol/L (136-146)
[2017-02-28] MEDS: Gabapentin 300 MG Cap PO SCH ×3 (06:14→21:06)
[2017-02-28] MEDS: methylPREDNISolone Sodium Succinate 125 MG/2 ML SDV IVPUSH SCH ×4 (06:14→23:19)
[2017-02-28] MEDS: Pantoprazole 40 MG Tab.CR PO SCH (09:27)
[2017-02-28] MEDS: Mycophenolate Mofetil 250 MG Cap PO SCH ×2 (09:27→21:06)
[2017-02-28] MEDS ORDERED: Warfarin 2 MG Tab PO SCH (14:00)
[2017-02-28] MEDS: HYDROmorphone 2 MG/ML Syringe IVPUSH PRN ×2 (15:04→21:14)
--- NOTE | 2017-02-28 16:47 | PCM.PN ---
- General Info Date of Service: 02/28/17 Admission Dx/Problem (Free Text): patient feels that her SLE exacerbation/flare up has gotten significantly better since receiving the IV Solu-Medrol. Patient stating that she is no longer having the eye burning sensation, headaches, difficulty swallowing, she also feels that her facial swelling has improved. Patient is denying any nausea , vomiting, diarrhea, constipation. patient states that her arthralgia pain is also much better. 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 She will simply follow up with her store sales manager in regards to restarting the medication. - Review of Systems General: Reports: Weakness, Fatigue - Patient Data Vitals - Most Recent: Last Vital Signs Temp 36.1 C 02/28/17 08:00 Pulse 45 L 02/28/17 08:00 Resp 16 02/28/17 08:00 BP 162/69 H 02/28/17 08:00 Pulse Ox 95 02/28/17 08:00 Weight - Most Recent: 108.862 kg I&O - Last 24 Hours: Intake & Output 02/28/17 02/28/17 02/28/17 06:59 14:59 22:59 Intake Total 2430 Output Total 2100 Balance 330 Lab Results Last 24 Hours: Laboratory Results - last 24 hr 02/27/17 02/28/17 02/28/17 Range/Units 20:50 02:54 02:54 WBC 4.60 (4.0-11.0) K/uL RBC 3.73 L (4.30-5.90) M/uL Hgb 10.4 L (12.0-16.0) g/dL Hct 29.4 L (36.0-46.0) % MCV 78.8 L (80.0-98.0) fL MCH 27.9 (27.0-32.0) pg MCHC 35.4 (31.0-37.0) g/dL RDW Std Deviation 49.5 (28.0-62.0) fl RDW Coeff of Elizabet 18 H (11.0-15.0) % Plt Count 74 L (150-400) K/uL MPV 9.80 (7.40-12.00) fL Neut % (Auto) 86.1 H (48.0-80.0) % Lymph % (Auto) 12.4 L (16.0-40.0) % [place] % (Auto) 1.5 (0.0-15.0) % Eos % (Auto) 0.0 (0.0-7.0) % Baso % (Auto) 0.0 (0.0-1.5) % Neut # (Auto) 4.0 (1.4-5.7) K/uL Lymph # (Auto) 0.6 (0.6-2.4) K/uL [place] # (Auto) 0.1 (0.0-0.8) K/uL Eos # (Auto) 0.0 (0.0-0.7) K/uL Baso # (Auto) 0.0 (0.0-0.1) K/uL Nucleated RBC % 0.0 /100WBC Nucleated RBCs # 0 K/uL Lactate 3.1 H (0.20-2.00) mmol/L Sodium 139 (136-146) mmol/L Potassium 4.3 (3.5-5.1) mmol/L Chloride 106 (98-110) mmol/L Carbon Dioxide 26 (21-31) mmol/L BUN 12 (6.0-23.0) mg/dL Creatinine 0.8 (0.6-1.5) mg/dL Est Cr Clr Drug Dosing 82.26 mL/min Estimated GFR (MDRD) > 60.0 ml/min Glucose 215 H (60-110) mg/dL Calcium 8.5 L (8.8-10.8) mg/dL Total Bilirubin 1.5 (0.1-1.5) mg/dL AST 15 (5-40) IU/L ALT 17 (8-54) IU/L Alkaline Phosphatase 54 (40-150) Total Protein 6.5 (6.0-8.0) g/dL Albumin 3.6 (3.5-5.0) g/dL Globulin 2.9 (2.0-3.5) g/dL Albumin/Globulin Ratio 1.2 L (1.3-2.8) 02/28/17 02/28/17 Range/Units 02:54 09:06 WBC (4.0-11.0) K/uL RBC (4.30-5.90) M/uL Hgb (12.0-16.0) g/dL Hct (36.0-46.0) % MCV (80.0-98.0) fL MCH (27.0-32.0) pg MCHC (31.0-37.0) g/dL RDW Std Deviation (28.0-62.0) fl RDW Coeff of Elizabet (11.0-15.0) % Plt Count (150-400) K/uL MPV (7.40-12.00) fL Neut % (Auto) (48.0-80.0) % Lymph % (Auto) (16.0-40.0) % [place] % (Auto) (0.0-15.0) % Eos % (Auto) (0.0-7.0) % Baso % (Auto) (0.0-1.5) % Neut # (Auto) (1.4-5.7) K/uL Lymph # (Auto) (0.6-2.4) K/uL [place] # (Auto) (0.0-0.8) K/uL Eos # (Auto) (0.0-0.7) K/uL Baso # (Auto) (0.0-0.1) K/uL Nucleated RBC % /100WBC Nucleated RBCs # K/uL Lactate 1.4 1.6 (0.20-2.00) mmol/L Sodium (136-146) mmol/L Potassium (3.5-5.1) mmol/L Chloride (98-110) mmol/L Carbon Dioxide (21-31) mmol/L BUN (6.0-23.0) mg/dL Creatinine (0.6-1.5) mg/dL Est Cr Clr Drug Dosing mL/min Estimated GFR (MDRD) ml/min Glucose (60-110) mg/dL Calcium (8.8-10.8) mg/dL Total Bilirubin (0.1-1.5) mg/dL AST (5-40) IU/L ALT (8-54) IU/L Alkaline Phosphatase (40-150) Total Protein (6.0-8.0) g/dL Albumin (3.5-5.0) g/dL Globulin (2.0-3.5) g/dL Albumin/Globulin Ratio (1.3-2.8) Med Orders - Current: Current Medications Acetaminophen (Tylenol) 650 mg PO Q4H PRN PRN Reason: Pain (Mild 1-3)/fever Gabapentin (Neurontin) 600 mg PO TID [facility] Last Admin: 02/28/17 13:43 Dose: 600 mg Hydromorphone HCl (Dilaudid) 1 mg IVPUSH Q2H PRN PRN Reason: Pain (severe 7-10) Last Admin: 02/28/17 15:04 Dose: 1 mg Sodium Chloride (Normal Saline) 1,000 mls @ 125 mls/hr IV ASDIRECTED [facility] Last Admin: 02/28/17 13:46 Dose: 125 mls/hr Methylprednisolone Sodium Succinate (Solu-Medrol) 125 mg IVPUSH Q6H [facility] Last Admin: 02/28/17 10:41 Dose: 125 mg Mycophenolate Mofetil (Cellcept) 1,000 mg PO BID [facility] Last Admin: 02/28/17 09:27 Dose: 1,000 mg Ondansetron HCl (Zofran) 4 mg IVPUSH Q4H PRN PRN Reason: Nausea/Vomiting Pantoprazole Sodium (Protonix) 40 mg PO DAILY [facility] Last Admin: 02/28/17 09:27 Dose: 40 mg Sodium Chloride (Saline Flush) 10 ml FLUSH ASDIRECTED PRN PRN Reason: Keep Vein Open Sodium Chloride (Saline Flush) 2.5 ml FLUSH ASDIRECTED PRN PRN Reason: Keep Vein Open Warfarin Sodium (Coumadin) 9 mg PO Q24H [facility] Last Admin: 02/28/17 13:43 Dose: 9 mg Discontinued Medications Hydromorphone HCl (Dilaudid) 1 mg IVPUSH ONETIME ONE Stop: 02/27/17 13:58 Last Admin: 02/27/17 14:20 Dose: 1 mg Sodium Chloride (Normal Saline) 1,000 mls @ 999 mls/hr IV STAT ONE Stop: 02/27/17 14:57 Last Admin: 02/27/17 14:19 Dose: 999 mls/hr Methylprednisolone Sodium Succinate (Solu-Medrol) 125 mg IVPUSH ONETIME ONE Stop: 02/27/17 13:58 Last Admin: 08/24/17 14:20 Dose: 125 mg Ondansetron HCl (Zofran) 4 mg IVPUSH ONETIME ONE Stop: 02/27/17 13:58 Last Admin: 02/27/17 14:19 Dose: 4 mg Famciclovir 500 Mg 1 each PO BID PRN PRN Reason: Other - Exam General: Alert, Oriented HEENT: Other (patient's facial swelling has improved, discoid lupus erythematous rashes still present) Neck: Supple Lungs: Clear to Auscultation, Normal Respiratory Effort Cardiovascular: Regular Rate, Regular Rhythm GI/Abdominal Exam: Normal Bowel Sounds, Soft - Problem List Review Problem List Initiated/Reviewed/Updated: Yes - Plan Plan:: Assessment and plan: 46-year-old female with past medical history significant for SLE coming in with acute SLE flareup symptoms including discoid lupus erythematous, difficulty swallowing, headaches, eye discomfort. #1. Acute SLE flareup with systemic findings including arthralgia, eye discomfort, difficulty swallowing secondary to SLE ulcers, cutaneous findings - patient's acute flareup seems to be under control with Solu-Medrol 125 mg every 6 hours. She'll continue to give the patient Solu-Medrol and consider possible discharge later today or tomorrow depending on the patient's condition. 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 Patient states that she has seen ophthalmology already and that the assembler metal furniture has cleared her for retinopathy. Patient states she will follow-up with her store sales manager in regards to restarting of that medication.
[2017-03-01] MEDS: HYDROmorphone 2 MG/ML Syringe IVPUSH PRN ×2 (03:00→10:51)
[2017-03-01] MEDS: methylPREDNISolone Sodium Succinate 125 MG/2 ML SDV IVPUSH SCH ×2 (05:35→10:38)
[2017-03-01] MEDS: Gabapentin 300 MG Cap PO SCH (05:35)
[2017-03-01] MEDS: Sodium Chloride 0.9% 1,000 ML IV SCH (05:36)
[2017-03-01 06:28] LABS: CHLORIDE,CL 106 mmol/L (98-110); SODIUM,NA 138 mmol/L (136-146)
[2017-03-01] MEDS: Pantoprazole 40 MG Tab.CR PO SCH (08:40)
[2017-03-01] MEDS: Mycophenolate Mofetil 250 MG Cap PO SCH (08:40)
--- NOTE | 2017-03-01 10:58 | PCM.DCSUM1 ---
Discharge Summary - Discharge Data Discharge Date: 03/01/17 Discharge Disposition: Home, Self-Care 01 Condition: Good - Patient Summary/Data Hospital Course: Admission diagnosis SLE flare Hospital course 46-year-old female with a past medical significant for systemic SLE with multiple flareups. Patient in the past has previously had a stroke secondary to her SLE and is on Coumadin therapy. She reports having fare up involve a malor rash, ulcers in her mouth, sinus pain, and myalgias. She has had prior admission for which she was managed here with IV solumedrol. She was admitted and given IV solumedrol. Today her third day of admission she is requesting discharge. Patient was discharged home with oral prednisone with 40mg daily followed by prednisone taper. She is to follow up with Dr. Durant in clinic next week. - Patient Instructions Diet: Usual Diet as Tolerated Activity: As Tolerated Other/Special Instructions: follow up next with at [facility] for INR check - Discharge Plan Prescriptions/Med Rec: Amoxicillin/Clavulanate K [Augmentin 875 MG/125 MG] 1 tab PO Q12HR #10 tablet Prednisone [IMW: predniSONE] 40 mg PO WITHBREAKFAST 5 Days #20 tab Home Medications: Home Meds Gabapentin [Neurontin] 600 mg PO TID 06/30/14 [History] Mycophenolate Mofetil [Cellcept] 1,000 mg PO BID 06/30/14 [History] Ondansetron HCl [Zofran] 4 mg PO BID PRN 06/30/14 [History] Citalopram Hydrobromide [Celexa] 40 mg PO DAILY 05/27/16 [History] Pantoprazole [ProTONIX] 40 mg PO DAILY 05/27/16 [History] Warfarin [Coumadin] 9 mg PO DAILY 05/27/16 [History] ClonazePAM [KlonoPIN] 0.5 mg PO BID PRN 02/27/17 [History] Famciclovir 500 mg PO BID PRN 02/27/17 [History] predniSONE [Prednisone] 5 mg PO DAILY 02/27/17 [History] Amoxicillin/Clavulanate K [Augmentin 875 MG/125 MG] 1 tab PO Q12HR #10 tablet [Rx] Prednisone [IMW: predniSONE] 40 mg PO WITHBREAKFAST 5 Days #20 tab 03/01/17 [Rx] Referrals: Ruslan Adams MD [Physician] - 03/07/17 10:15 am - Patient Data Vitals - Most Recent: Last Vital Signs Temp 35.7 C 03/01/17 08:00 Pulse 50 L 03/01/17 08:00 Resp 20 03/01/17 08:00 BP 143/67 H 03/01/17 08:00 Pulse Ox 97 03/01/17 08:00 Weight - Most Recent: 112.491 kg I&O - Last 24 hours: Intake & Output 02/28/17 03/01/17 03/01/17 22:59 06:59 14:59 Intake Total 4685 1800 Output Total 2200 1450 Balance 2485 350 Lab Results - Last 24 hrs: Laboratory Results - last 24 hr 03/01/17 03/01/17 03/01/17 Range/Units 05:48 05:48 05:48 WBC 5.56 (4.0-11.0) K/uL RBC 3.56 L (4.30-5.90) M/uL Hgb 9.9 L (12.0-16.0) g/dL Hct 28.8 L (36.0-46.0) % MCV 80.9 (80.0-98.0) fL MCH 27.8 (27.0-32.0) pg MCHC 34.4 (31.0-37.0) g/dL RDW Std Deviation 50.0 (28.0-62.0) fl RDW Coeff of Elizabet 18 H (11.0-15.0) % Plt Count 95 L (150-400) K/uL MPV 10.60 (7.40-12.00) fL Neut % (Auto) 86.9 H (48.0-80.0) % Lymph % (Auto) 9.9 L (16.0-40.0) % [place] % (Auto) 3.2 (0.0-15.0) % Eos % (Auto) 0.0 (0.0-7.0) % Baso % (Auto) 0.0 (0.0-1.5) % Neut # (Auto) 4.8 (1.4-5.7) K/uL Lymph # (Auto) 0.6 (0.6-2.4) K/uL [place] # (Auto) 0.2 (0.0-0.8) K/uL Eos # (Auto) 0.0 (0.0-0.7) K/uL Baso # (Auto) 0.0 (0.0-0.1) K/uL Nucleated RBC % 0.3 /100WBC Nucleated RBCs # 0 K/uL INR 3.49 H (0.86-1.11) Sodium 138 (136-146) mmol/L Potassium 4.2 (3.5-5.1) mmol/L Chloride 106 (98-110) mmol/L Carbon Dioxide 24 (21-31) mmol/L BUN 18 (6.0-23.0) mg/dL Creatinine 0.8 (0.6-1.5) mg/dL Est Cr Clr Drug Dosing 82.71 mL/min Estimated GFR (MDRD) > 60.0 ml/min Glucose 257 H (60-110) mg/dL Calcium 8.5 L (8.8-10.8) mg/dL Med Orders - Current: Current Medications Acetaminophen (Tylenol) 650 mg PO Q4H PRN PRN Reason: Pain (Mild 1-3)/fever Last Admin: 02/28/17 21:14 Dose: 650 mg Gabapentin (Neurontin) 600 mg PO TID [facility] Last Admin: 03/01/17 05:35 Dose: 600 mg Hydromorphone HCl (Dilaudid) 1 mg IVPUSH Q2H PRN PRN Reason: Pain (severe 7-10) Last Admin: 03/01/17 10:51 Dose: 1 mg Sodium Chloride (Normal Saline) 1,000 mls @ 125 mls/hr IV ASDIRECTED [facility] Last Admin: 03/01/17 05:36 Dose: 125 mls/hr Methylprednisolone Sodium Succinate (Solu-Medrol) 125 mg IVPUSH Q6H [facility] Last Admin: 03/01/17 10:38 Dose: 125 mg Mycophenolate Mofetil (Cellcept) 1,000 mg PO BID [facility] Last Admin: 03/01/17 08:40 Dose: 1,000 mg Ondansetron HCl (Zofran) 4 mg IVPUSH Q4H PRN PRN Reason: Nausea/Vomiting Pantoprazole Sodium (Protonix) 40 mg PO DAILY [facility] Last Admin: 03/01/17 08:40 Dose: 40 mg Sodium Chloride (Saline Flush) 10 ml FLUSH ASDIRECTED PRN PRN Reason: Keep Vein Open Sodium Chloride (Saline Flush) 2.5 ml FLUSH ASDIRECTED PRN PRN Reason: Keep Vein Open Warfarin Sodium (Coumadin) 2.5 mg PO 1400 FERNANDO Discontinued Medications Hydromorphone HCl (Dilaudid) 1 mg IVPUSH ONETIME ONE Stop: 02/27/17 13:58 Last Admin: 02/27/17 14:20 Dose: 1 mg Sodium Chloride (Normal Saline) 1,000 mls @ 999 mls/hr IV STAT ONE Stop: 02/27/17 14:57 Last Admin: 02/27/17 14:19 Dose: 999 mls/hr Methylprednisolone Sodium Succinate (Solu-Medrol) 125 mg IVPUSH ONETIME ONE Stop: 02/27/17 13:58 Last Admin: 02/27/17 14:20 Dose: 125 mg Ondansetron HCl (Zofran) 4 mg IVPUSH ONETIME ONE Stop: 02/27/17 13:58 Last Admin: 02/27/17 14:19 Dose: 4 mg Famciclovir 500 Mg 1 each PO BID PRN PRN Reason: Other Warfarin Sodium (Coumadin) 9 mg PO Q24H [facility] Last Admin: 02/28/17 13:43 Dose: 9 mg *Q Meaningful Use (DIS) - VTE *Q VTE Criteria *Q: - Stroke *Q Stroke Criteria *Q: - AMI *Q AMI Criteria *Q:
[2017-03-01 12:21] VITALS: BP 144/66
[2017-03-02] MEDS ORDERED: Warfarin 2.5 MG Tab PO SCH (14:00)
== END 2017-03-01 12:37 | disposition home or self-care (01) | DRG 547 ==
LOC: MW.ED 13:44 → INTOOBSV 15:42 → MW.MS 15:42 → OBSVTOIN 17:30 → MW.MS 02-28 06:28
PROVIDERS: ADMIT Internal Medicine; ATTEND Internal Medicine
DX: M32.9 Systemic lupus erythematosus, unspecified (principal); R51 Headache; F41.9 Anxiety disorder, unspecified; Z86.73 Personal history of transient ischemic attack (TIA), and cerebral infarction without residual deficits; Z79.01 Long term (current) use of anticoagulants; Z79.899 Other long term (current) drug therapy; Z86.718 Personal history of other venous thrombosis and embolism
CPT/HCPCS: 36415; 71010; 80053; 81003; 83605; 85025; 85610; 85652; 86140; 93005; 96361; 96374; 96375; 99285; J1170; J2405; J2930; J7040; 80048; 99283; A9270-GY

== ENCOUNTER 2017-03-30 17:17 | Emergency (ER) | payer MEDICARE, BC ==
[2017-03-30] MEDS ORDERED: Sodium Chloride 0.9% 2.5 ML Syringe FLUSH PRN (17:23)
[2017-03-30] MEDS ORDERED: Sodium Chloride 0.9% 10 ML Syringe FLUSH PRN (17:23)
--- NOTE | 2017-03-30 17:48 | EDM.PDOC ---
ED HPI GENERAL MEDICAL PROBLEM - General Chief Complaint: Chest Pain Stated Complaint: CHEST PAIN Time Seen by Provider: 03/30/17 17:21 Source of Information: Reports: Patient History Limitations: Reports: No Limitations - History of Present Illness INITIAL COMMENTS - FREE TEXT/NARRATIVE: History of present illness: []Patient has a history of SLE complaining of chest pain since 9:00 this morning. Pain has been constant and worse with lying flat and improved when standing up. She states when she lays down pain radiates up to her jaw. She complains of shortness of breath. 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 Patient was transferred from [place] to [place] for an endoscopy 2 days ago and was discharged the next day. Review of systems: As per history of present illness and below otherwise all systems reviewed and negative. Past medical history: As per history of present illness and as reviewed below otherwise noncontributory. Surgical history: As per history of present illness and as reviewed below otherwise noncontributory. Social history: No reported history of drug or alcohol abuse. Family history: As per history of present illness and as reviewed below otherwise noncontributory. Physical exam: General: Well developed, well nourished in NAD HEENT: Atraumatic, normocephalic, pupils reactive, negative for conjunctival pallor or scleral icterus, mucous membranes moist, throat clear, neck supple, nontender, trachea midline. Lungs: Clear to auscultation, breath sounds equal bilaterally, chest nontender. Heart: S1S2, regular, negative for clicks, rubs, or JVD. Abdomen: Soft, nondistended, nontender. Negative for masses or hepatosplenomegaly. Negative for costovertebral tenderness. Pelvis: Stable nontender. Genitourinary: Deferred. Rectal: Deferred. Extremities: Atraumatic, negative for cords or calf pain. Neurovascular unremarkable. Neuro: Awake, alert, oriented. Cranial nerves II through XII unremarkable. Cerebellum unremarkable. Motor and sensory unremarkable throughout. Exam nonfocal. Diagnostics: []Labs normal including troponin, x-ray all normal Therapeutics: [] Impression: []gerd, mild CHF Plan: []Follow-up PMD Definitive disposition and diagnosis as appropriate pending reevaluation and review of above. Left Chest Pain Score (Numeric/FACES): 10 - Related Data Allergies Allergy/AdvReac Type Severity Reaction Status Date / Time No Known Allergies Allergy Verified 02/27/17 14:00 Home Meds: Home Meds Gabapentin [Neurontin] 600 mg PO TID 06/30/14 [History] Mycophenolate Mofetil [Cellcept] 1,000 mg PO BID 06/30/14 [History] Ondansetron HCl [Zofran] 4 mg PO BID PRN 06/30/14 [History] Citalopram Hydrobromide [Celexa] 40 mg PO DAILY 05/27/16 [History] Pantoprazole [ProTONIX] 40 mg PO DAILY 05/27/16 [History] Warfarin [Coumadin] 9 mg PO DAILY 05/27/16 [History] ClonazePAM [KlonoPIN] 0.5 mg PO BID PRN 02/27/17 [History] Famciclovir 500 mg PO BID PRN 02/27/17 [History] predniSONE [Prednisone] 5 mg PO DAILY 02/27/17 [History] Prednisone [IMW: predniSONE] 40 mg PO WITHBREAKFAST 5 Days #20 tab 03/01/17 [Rx] Enoxaparin Sodium [Lovenox] 35 mg SQ BID 03/30/17 [History] Past Medical History HEENT History: Reports: Sinusitis, Other (See Below) Other HEENT History: mouth ulcers Cardiovascular History: Reports: Blood Clots/VTE/DVT Respiratory History: Reports: PE Gastrointestinal History: Reports: None Genitourinary History: Reports: None BUSINESS SYSTEMS CONSULTANT History: Reports: None Musculoskeletal History: Reports: None Neurological History: Reports: CVA Psychiatric History: Reports: Anxiety Endocrine/Metabolic History: Reports: None Hematologic History: Reports: Anemia Immunologic History: Reports: SLE, Other (See Below) Other Immunologic History: Lupus (SLE) Oncologic (Cancer) History: Reports: Other (See Below) Other Oncologic History: precancer cells, melanoma Dermatologic History: Reports: None - Infectious Disease History Infectious Disease History: Reports: Herpes - Past Surgical History Head Surgeries/Procedures: Reports: None HEENT Surgical History: Reports: None GI Surgical History: Reports: Cholecystectomy Musculoskeletal Surgical History: Reports: Other (See Below) Other Musculoskeletal Surgeries/Procedures:: 3 hand left surgeries Social & Family History - Family History Family Medical History: Noncontributory HEENT: Reports: None Cardiac: Reports: None Respiratory: Reports: None GI: Reports: None : Reports: None OBGYN: Reports: None Musculoskeletal: Reports: None Neurological: Reports: None Psychiatric: Reports: None Endocrine/Metabolic: Reports: None Hematologic: Reports: None Immunologic: Reports: None Dermatologic: Reports: None Oncologic: Reports: None - Tobacco Use Smoking Status *Q: Never Smoker Second Hand Smoke Exposure: No - Caffeine Use Caffeine Use: Reports: Coffee Other Caffeine Use: occasionally - Alcohol Use Days Per Week of Alcohol Use: 0 - Recreational Drug Use Recreational Drug Use: No ED ROS GENERAL - Review of Systems Review Of Systems: See Below (See history of present illness) ED EXAM, GENERAL - Physical Exam Exam: See Below (See history of present illness) Course - Vital Signs Last Recorded V/S: Last Vital Signs Temp 36.3 C 03/30/17 20:22 Pulse 54 L 03/30/17 20:22 Resp 12 03/30/17 20:22 BP 137/83 03/30/17 20:22 Pulse Ox 94 L 03/30/17 20:22 - Orders/Labs/Meds Labs: Laboratory Tests 03/30/17 03/30/17 03/30/17 Range/Units 17:34 17:34 17:34 WBC 5.34 (4.0-11.0) K/uL RBC 4.45 (4.30-5.90) M/uL Hgb 11.9 L (12.0-16.0) g/dL Hct 34.4 L (36.0-46.0) % MCV 77.3 L (80.0-98.0) fL MCH 26.7 L (27.0-32.0) pg MCHC 34.6 (31.0-37.0) g/dL RDW Std Deviation 44.1 (28.0-62.0) fl RDW Coeff of Elizabet 16 H (11.0-15.0) % Plt Count 111 L (150-400) K/uL MPV 9.60 (7.40-12.00) fL Neut % (Auto) 88.9 H (48.0-80.0) % Lymph % (Auto) 9.2 L (16.0-40.0) % [place] % (Auto) 1.7 (0.0-15.0) % Eos % (Auto) 0.0 (0.0-7.0) % Baso % (Auto) 0.2 (0.0-1.5) % Neut # (Auto) 4.8 (1.4-5.7) K/uL Lymph # (Auto) 0.5 L (0.6-2.4) K/uL [place] # (Auto) 0.1 (0.0-0.8) K/uL Eos # (Auto) 0.0 (0.0-0.7) K/uL Baso # (Auto) 0.0 (0.0-0.1) K/uL Nucleated RBC % 0.0 /100WBC Nucleated RBCs # 0 K/uL INR 1.06 (0.86-1.11) APTT 32.5 H (18.6-31.3) SEC Sodium 139 (136-146) mmol/L Potassium 4.4 (3.5-5.1) mmol/L Chloride 108 (98-110) mmol/L Carbon Dioxide 20 L (21-31) mmol/L BUN 17 (6.0-23.0) mg/dL Creatinine 1.0 (0.6-1.5) mg/dL Est Cr Clr Drug Dosing 66.17 mL/min Estimated GFR (MDRD) 59.7 ml/min Glucose 157 H (60-110) mg/dL Calcium 9.2 (8.8-10.8) mg/dL Total Bilirubin 1.5 (0.1-1.5) mg/dL AST 37 (5-40) IU/L ALT 41 (8-54) IU/L Alkaline Phosphatase 63 (40-150) Troponin I (0.0-0.29) NG/ML B-Natriuretic Peptide (<100) PG/ML Total Protein 7.3 (6.0-8.0) g/dL Albumin 4.3 (3.5-5.0) g/dL Globulin 3.0 (2.0-3.5) g/dL Albumin/Globulin Ratio 1.4 (1.3-2.8) 03/30/17 03/30/17 Range/Units 17:34 17:34 WBC (4.0-11.0) K/uL RBC (4.30-5.90) M/uL Hgb (12.0-16.0) g/dL Hct (36.0-46.0) % MCV (80.0-98.0) fL MCH (27.0-32.0) pg MCHC (31.0-37.0) g/dL RDW Std Deviation (28.0-62.0) fl RDW Coeff of Elizabet (11.0-15.0) % Plt Count (150-400) K/uL MPV (7.40-12.00) fL Neut % (Auto) (48.0-80.0) % Lymph % (Auto) (16.0-40.0) % [place] % (Auto) (0.0-15.0) % Eos % (Auto) (0.0-7.0) % Baso % (Auto) (0.0-1.5) % Neut # (Auto) (1.4-5.7) K/uL Lymph # (Auto) (0.6-2.4) K/uL [place] # (Auto) (0.0-0.8) K/uL Eos # (Auto) (0.0-0.7) K/uL Baso # (Auto) (0.0-0.1) K/uL Nucleated RBC % /100WBC Nucleated RBCs # K/uL INR (0.86-1.11) APTT (18.6-31.3) SEC Sodium (136-146) mmol/L Potassium (3.5-5.1) mmol/L Chloride (98-110) mmol/L Carbon Dioxide (21-31) mmol/L BUN (6.0-23.0) mg/dL Creatinine (0.6-1.5) mg/dL Est Cr Clr Drug Dosing mL/min Estimated GFR (MDRD) ml/min Glucose (60-110) mg/dL Calcium (8.8-10.8) mg/dL Total Bilirubin (0.1-1.5) mg/dL AST (5-40) IU/L ALT (8-54) IU/L Alkaline Phosphatase (40-150) Troponin I < 0.10 (0.0-0.29) NG/ML B-Natriuretic Peptide 453 H (<100) PG/ML Total Protein (6.0-8.0) g/dL Albumin (3.5-5.0) g/dL Globulin (2.0-3.5) g/dL Albumin/Globulin Ratio (1.3-2.8) Meds: Medications Discontinued Medications Generic Name Dose Route Start Last Admin Trade Name Freq PRN Reason Stop Dose Admin Al Hydroxide/Mg Hydroxide 15 0 ml 03/30/17 17:50 03/30/17 18:04 ml/ Lidocaine HCl 5 ml PO 03/30/17 17:51 20 each ONETIME ONE Administration Iopamidol 50 ml 03/30/17 18:00 03/30/17 18:01 Isovue Multipack-370 (76%) IVPUSH 03/30/17 18:01 50 ml ONETIME STA Administration Sodium Chloride 10 ml 03/30/17 17:23 03/30/17 17:28 Saline Flush FLUSH 10 ml ASDIRECTED PRN Administration Keep Vein Open Sodium Chloride 2.5 ml 03/30/17 17:23 03/30/17 17:29 Saline Flush FLUSH 2.5 ml ASDIRECTED PRN Administration Keep Vein Open Departure - Departure Time of Disposition: 20:35 Disposition: Home, Self-Care 01 Condition: Good Clinical Impression: GERD (gastroesophageal reflux disease) Qualifiers: Esophagitis presence: without esophagitis Qualified Code(s): K21.9 - Gastro- esophageal reflux disease without esophagitis Instructions: Gastroesophageal Reflux Disease, Adult Referrals: PCP,None [Primary Care Provider] - Forms: ED Department Discharge Additional Instructions: The following information is given to patients seen in the emergency department who are being discharged to home. This information is to outline your options for follow-up care. We provide all patients seen in our emergency department with a follow-up referral. The need for follow-up, as well as the timing and circumstances, are variable depending upon the specifics of your emergency department visit. If you don't have a primary care physician on staff, we will provide you with a referral. We always advise you to contact your personal physician following an emergency department visit to inform them of the circumstance of the visit and for follow-up with them and/or the need for any referrals to a consulting specialist. The emergency department will also refer you to a specialist when appropriate. This referral assures that you have the opportunity for follow-up care with a specialist. All of these measure are taken in an effort to provide you with optimal care, which includes your follow-up. Under all circumstances we always encourage you to contact your private physician who remains a resource for coordinating your care. When calling for follow-up care, please make the office aware that this follow-up is from your recent emergency room visit. If for any reason you are refused follow-up, please contact the [facility] Emergency Department at and asked to speak to the emergency department charge nurse. Follow-up with primary care continue meds as recommended [facility] [address] [place] [id number]
[2017-03-30] MEDS ORDERED: Alum Hydrox/Mag Hydrox/Simeth 15 ML, Lidocaine 2% 5 ML PO ONE ×2 (17:50)
[2017-03-30] MEDS ORDERED: Iopamidol 755 MG/ML 500 ML Multipack Bottle IVPUSH STA (18:00)
[2017-03-30 20:23] VITALS: BP 137/83
--- NOTE | 2017-03-31 18:55 | CT ---
EXAM DATE: 03/30/17 PATIENT'S AGE: 46 Patient: GIACOMO GLOVER Facility: [place], [place] Site . Site : 1970 Study: CT Chest Angio [id number]/24/2017 6:47:02 PM Ordering Physician: Amol Quan Final Report: INDICATION: Chest pain. TECHNIQUE: Axial images were acquired through the chest after the intravenous administration of 50 mL of Isovue. Image acquisition was timed for maximum pulmonary arterial enhancement. Sagittal and coronal reconstructions. COMPARISON: July 04, 2011. FINDINGS: The examination is mildly compromised by patient body habitus. There is adequate contrast opacification of the pulmonary arteries with no filling defects to suggest an acute pulmonary embolus. Heart is mildly enlarged. No pericardial effusion. Normal caliber of the thoracic aorta. There is suboptimal contrast opacification of the thoracic aorta limiting the evaluation for dissection. No mediastinal or hilar lymphadenopathy. There is a subcentimeter low-density lesion in the left lobe of the thyroid, which is statistically likely benign. The lungs are essentially clear. There are a few stable benign noncalcified subpleural pulmonary nodules. No pleural fluid. No pneumothorax. Limited assessment of the upper abdomen demonstrates no acute abnormality. Status post cholecystectomy. Splenomegaly is again noted. There is no evidence of an acute bony abnormality. IMPRESSION: 1. No CT findings to suggest an acute pulmonary embolus. 2. Incidental findings as described above. Dictated by Shawn Price MD @ 03/30/2017 7:31:43 PM Dictated by: Shawn Price MD @ 03/30/2017 19:34:09 (Electronic Signature) Report Signed by Proxy. KATHY
--- NOTE | 2017-04-01 15:09 | CR ---
EXAM DATE: 03/30/17 PATIENT'S AGE: 46 Patient: GIACOMO GLOVER Facility: [facility] Site . Site : 1970 Study: XRay-Chest [id number]/[id number]/2017 2:36:53 PM Ordering Physician: Amol Quan Final Report: INDICATION: PAIN, SHORTNESS OF BREATH CHEST, ONE VIEW An AP radiograph of the chest was performed. Comparison: 02/27/2017. The lungs appear clear and no pleural effusions are identified. The cardiomediastinal silhouette and pulmonary vasculature appear normal, as do the visualized bones. IMPRESSION: No acute intrathoracic abnormality identified. EVELYNE NIEVES MD [employer] [facility] [employer] Dictated by: Thanh Nieves MD @ 04/01/2017 14:57:57 Signed by: Thanh Nieves MD @04/01/2017 2:57:57 PM (Electronic Signature) Report Signed by Proxy. [facility]ARITAN HOSPITALEmiliano
== END 2017-03-30 20:35 | disposition home or self-care (01) ==
LOC: MW.ED 17:17
DX: K21.9 Gastro-esophageal reflux disease without esophagitis (principal); Z79.899 Other long term (current) drug therapy; Z79.01 Long term (current) use of anticoagulants; Z79.02 Long term (current) use of antithrombotics/antiplatelets; Z86.73 Personal history of transient ischemic attack (TIA), and cerebral infarction without residual deficits; Z90.49 Acquired absence of other specified parts of digestive tract
CPT/HCPCS: 36415; 71010; 71275; 80053; 83880; 84484; 85025; 85610; 85730; 99285; A9270; Q9967; 99282

== ENCOUNTER 2019-09-21 09:53 | Emergency (ER) | payer MEDICARE, BC ==
--- NOTE | 2019-09-21 10:41 | EDM.PDOC ---
ED HPI GENERAL MEDICAL PROBLEM - General Chief Complaint: Lower Extremity Injury/Pain Stated Complaint: BROKEN ANKLE Time Seen by Provider: 09/21/19 10:30 Source of Information: Reports: Patient History Limitations: Reports: No Limitations - History of Present Illness INITIAL COMMENTS - FREE TEXT/NARRATIVE: This 48 year old female lost her balance while getting out of bed this morning injuring her right ankle. She complains of severe pain in right ankle. She complains of a minor contusion to right forearm with no discomfort. She states that she is on Coumadin for clotting issues secondary to lupus. She takes Coumadin 10mg daily. She denies any other problems at this time. Onset: Sudden Location: Reports: Lower Extremity, Right Quality: Reports: Sharp, Throbbing Severity: Moderate Improves with: Reports: Immobilization Worsens with: Reports: Movement right ankle Pain Score (Numeric/FACES): 10 - Related Data Allergies Allergy/AdvReac Type Severity Reaction Status Date / Time No Known Allergies Allergy Verified 09/21/19 10:09 Home Meds: Home Meds Ondansetron HCl [Zofran] 4 mg PO BID PRN 06/30/14 [History] Citalopram Hydrobromide [Celexa] 40 mg PO DAILY 05/27/16 [History] Pantoprazole [ProTONIX] 40 mg PO DAILY 05/27/16 [History] Warfarin [Coumadin] 9 mg PO DAILY 05/27/16 [History] ClonazePAM [KlonoPIN] 0.5 mg PO BID PRN 02/27/17 [History] Famciclovir 500 mg PO BID PRN 02/27/17 [History] predniSONE [Prednisone] 5 mg PO DAILY 02/27/17 [History] Prednisone [IMW: predniSONE] 40 mg PO WITHBREAKFAST 5 Days #20 tab 03/01/17 [Rx] Acetaminophen/oxyCODONE [Percocet 325-5 MG] 1 tab PO TID 09/21/19 [History] Past Medical History HEENT History: Reports: Sinusitis, Other (See Below) Other HEENT History: mouth ulcers Cardiovascular History: Reports: Blood Clots/VTE/DVT Respiratory History: Reports: PE Gastrointestinal History: Reports: None Genitourinary History: Reports: None CHILD CARE ASSISTANT History: Reports: None Musculoskeletal History: Reports: None Neurological History: Reports: CVA Psychiatric History: Reports: Anxiety Endocrine/Metabolic History: Reports: None Hematologic History: Reports: Anemia Immunologic History: Reports: SLE, Other (See Below) Other Immunologic History: Lupus (SLE) Oncologic (Cancer) History: Reports: Other (See Below) Other Oncologic History: precancer cells, melanoma Dermatologic History: Reports: None - Infectious Disease History Infectious Disease History: Reports: Herpes - Past Surgical History Head Surgeries/Procedures: Reports: None HEENT Surgical History: Reports: None GI Surgical History: Reports: Cholecystectomy Musculoskeletal Surgical History: Reports: Other (See Below) Other Musculoskeletal Surgeries/Procedures:: 3 hand left surgeries Social & Family History - Family History Family Medical History: Noncontributory HEENT: Reports: None Cardiac: Reports: None Respiratory: Reports: None GI: Reports: None : Reports: None OBGYN: Reports: None Musculoskeletal: Reports: None Neurological: Reports: None Psychiatric: Reports: None Endocrine/Metabolic: Reports: None Hematologic: Reports: None Immunologic: Reports: None Dermatologic: Reports: None Oncologic: Reports: None - Tobacco Use Smoking Status *Q: Never Smoker - Caffeine Use Caffeine Use: Reports: Coffee Other Caffeine Use: occasionally - Recreational Drug Use Recreational Drug Use: No Review of Systems - Review of Systems Review Of Systems: See Below Constitutional: Reports: No Symptoms Eyes: Reports: No Symptoms Ears: Reports: No Symptoms Nose: Reports: No Symptoms Mouth/Throat: Reports: No Symptoms Respiratory: Reports: No Symptoms Cardiovascular: Reports: No Symptoms GI/Abdominal: Reports: No Symptoms Genitourinary: Reports: No Symptoms Musculoskeletal: Reports: Other (pain in right ankle) Skin: Reports: No Symptoms Neurological: Reports: No Symptoms ED EXAM, GENERAL - Physical Exam Exam: See Below Exam Limited By: No Limitations General Appearance: Alert, WD/WN, Moderate Distress (coming of right ankle pain) Ears: Normal External Exam, Normal Canal, Hearing Grossly Normal, Normal TMs Ear Exam: Bilateral Ear: Auricle Normal, Canal Normal, TM normal Nose: Normal Inspection, Normal Mucosa, No Blood Throat/Mouth: Normal Inspection, Normal Lips, Normal Teeth, Normal Gums, Normal Oropharynx, Normal Voice, No Airway Compromise Head: Atraumatic, Normocephalic Neck: Normal Inspection, Supple, Non-Tender, Full Range of Motion Respiratory/Chest: No Respiratory Distress, Lungs Clear, Normal Breath Sounds, No Accessory Muscle Use, Chest Non-Tender Cardiovascular: Normal Peripheral Pulses, Regular Rate, Rhythm, No Edema, No Gallop, No JVD, No Murmur, No Rub Peripheral Pulses: 3+: Popliteal (L), Popliteal (R), Dorsalis Pedis (L), Dorsalis Pedis (R) GI/Abdominal: Normal Bowel Sounds, Soft, Non-Tender (Female) Exam: Deferred Rectal (Female) Exam: Deferred Back Exam: Normal Inspection, Full Range of Motion Extremities: Other (Grossly and tender along the lateral malleolus. Unable to evaluate joint due to pain). No: Link's Sign Neurological: Alert, Oriented, CN II-XII Intact, Normal Reflexes, No Motor/ Sensory Deficits Skin Exam: Warm, Dry, Intact, Normal Color, No Rash Lymphatic: No Adenopathy Course - Vital Signs Text/Narrative:: I discussed with the patient all of her imaging test which is negative for acute pathology. She will be discharge at this time. She agrees with the discharge plan. Last Recorded V/S: Last Vital Signs Temp 97.3 F 09/21/19 10:07 Pulse 67 09/21/19 11:50 Resp 18 09/21/19 11:50 BP 143/84 H 09/21/19 11:50 Pulse Ox 97 09/21/19 11:50 - Orders/Labs/Meds Orders: Active Orders 24 hr Category Date Time Status DME for Discharge [COMM] Stat Oth 09/21/19 13:31 Ordered Labs: Laboratory Tests 09/21/19 09/21/19 09/21/19 Range/Units 11:14 11:14 11:14 WBC 4.45 (4.0-11.0) K/uL RBC 4.76 (4.30-5.90) M/uL Hgb 14.0 (12.0-16.0) g/dL Hct 39.6 (36.0-46.0) % MCV 83.2 (80.0-98.0) fL MCH 29.4 (27.0-32.0) pg MCHC 35.4 (31.0-37.0) g/dL RDW Std Deviation 48.4 (28.0-62.0) fl RDW Coeff of Elizabet 16 H (11.0-15.0) % Plt Count 127 L (150-400) K/uL MPV 9.60 (7.40-12.00) fL Neut % (Auto) 56.4 (48.0-80.0) % Lymph % (Auto) 34.4 (16.0-40.0) % [place] % (Auto) 8.1 (0.0-15.0) % Eos % (Auto) 0.9 (0.0-7.0) % Baso % (Auto) 0.2 (0.0-1.5) % Neut # (Auto) 2.5 (1.4-5.7) K/uL Lymph # (Auto) 1.5 (0.6-2.4) K/uL [place] # (Auto) 0.4 (0.0-0.8) K/uL Eos # (Auto) 0.0 (0.0-0.7) K/uL Baso # (Auto) 0.0 (0.0-0.1) K/uL Nucleated RBC % 0.0 /100WBC Nucleated RBCs # 0 K/uL INR 3.48 Sodium 143 (136-145) mmol/L Potassium 3.7 (3.5-5.1) mmol/L Chloride 106 (98-107) mmol/L Carbon Dioxide 31.1 (21.0-32.0) mmol/L BUN 21 H (7.0-18.0) mg/dL Creatinine 1.0 (0.6-1.0) mg/dL Est Cr Clr Drug Dosing 64.41 mL/min Estimated GFR (MDRD) 59.2 ml/min Glucose 94 (74-106) mg/dL Calcium 9.4 (8.5-10.1) mg/dL Total Bilirubin 1.0 (0.2-1.0) mg/dL AST 26 (15-37) IU/L ALT 38 (14-63) IU/L Alkaline Phosphatase 75 (46-116) U/L Total Protein 7.4 (6.4-8.2) g/dL Albumin 4.1 (3.4-5.0) g/dL Globulin 3.3 (2.6-4.0) g/dL Albumin/Globulin Ratio 1.2 (0.9-1.6) Meds: Medications Discontinued Medications Generic Name Dose Route Start Last Admin Trade Name Freq PRN Reason Stop Dose Admin Hydromorphone HCl 1 mg 09/21/19 10:59 09/21/19 11:49 Dilaudid IM 09/21/19 11:00 1 mg ONETIME ONE Administration Departure - Departure Time of Disposition: 13:35 Disposition: Home, Self-Care 01 Condition: Good Clinical Impression: Contusion of right ankle, initial encounter Moderate right ankle sprain Qualifiers: Encounter type: initial encounter Qualified Code(s): S93.401A - Sprain of unspecified ligament of right ankle, initial encounter - Discharge Information *PRESCRIPTION DRUG MONITORING PROGRAM REVIEWED*: Yes *COPY OF PRESCRIPTION DRUG MONITORING REPORT IN PATIENT CARMEN: Yes Instructions: Cast or Splint Care, Adult, [id number], Crutch Use, Adult, Easy -to-Read, Ankle Sprain, [id number] Referrals: Ruslan Adams MD [Primary Care Provider] - Forms: ED Department Discharge Additional Instructions: Take all medications as directed. Follow up with your PCP in the next two to four days. Cold compresses to the injured ankle and foot for the next two to three days (30 minutes on and one hour off while awake). Elevate the right leg at rest for the next two to three days. Rest for the next 24 hours. Return to the ED if your condition gets worse or should you have any questions or concerns. The following information is given to patients seen in the emergency department who are being discharged to home. This information is to outline your options for follow-up care. We provide all patients seen in our emergency department with a follow-up referral. The need for follow-up, as well as the timing and circumstances, are variable depending upon the specifics of your emergency department visit. If you don't have a primary care physician on staff, we will provide you with a referral. We always advise you to contact your personal physician following an emergency department visit to inform them of the circumstance of the visit and for follow-up with them and/or the need for any referrals to a consulting specialist. The emergency department will also refer you to a specialist when appropriate. This referral assures that you have the opportunity for follow-up care with a specialist. All of these measure are taken in an effort to provide you with optimal care, which includes your follow-up. Under all circumstances we always encourage you to contact your private physician who remains a resource for coordinating your care. When calling for follow-up care, please make the office aware that this follow-up is from your recent emergency room visit. If for any reason you are refused follow-up, please contact the [facility] Emergency Department at and asked to speak to the emergency department charge nurse. Sepsis Event Note - Evaluation Sepsis Screening Result: No Definite Risk - Focused Exam Vital Signs: Vital Signs Temp Pulse Resp BP Pulse Ox 09/21/19 11:50 67 18 143/84 H 97 09/21/19 10:07 97.3 F 59 L 18 127/78 95 Date Exam was Performed: 09/21/19 Time Exam was Performed: 13:34 - My Orders Last 24 Hours: My Active Orders 09/21/19 13:31 DME for Discharge [COMM] Stat - Assessment/Plan Last 24 Hours: My Active Orders 09/21/19 13:31 DME for Discharge [COMM] Stat
[2019-09-21] MEDS ORDERED: HYDROmorphone 1 MG/ML Syringe IM ONE (10:59)
[2019-09-21 11:52] VITALS: BP 143/84; PULSE 67
--- NOTE | 2019-09-21 11:52 | CR ---
Right ankle: 3 views of the right ankle were obtained. Comparison: No prior ankle study. Ankle mortise is symmetric. Bony density is noted off the inferior fibula as well as off the talus or calcaneus which appear to be due to old injury. Soft tissue swelling is noted. Slight bony exostosis off the distal lateral tibia is also compatible with old injury. No acute fracture, dislocation or other bony abnormality is seen. Impression: 1. Evidence of old injury as noted above. 2. Soft tissue swelling. 3. No acute bony abnormality is appreciated. Diagnostic code #2 This report was dictated in MDT
[2019-09-21 11:56] LABS: CARBON DIOXIDE,CO2 31.1 mmol/L (21.0-32.0); POTASSIUM,K 3.7 mmol/L (3.5-5.1)
--- NOTE | 2019-09-21 11:56 | CR ---
Right tibia and fibula: AP and lateral views of the right tibia and fibula were obtained. Distal portions of these bones were included on recent ankle exam. No discrete fracture or other abnormality is appreciated. Impression: 1. No abnormality is appreciated on 2 view right tibia and fibula exam. Diagnostic code #1 This report was dictated in MDT
== END 2019-09-21 13:50 | disposition home or self-care (01) ==
LOC: MW.ED 09:53
DX: S93.401A Sprain of unspecified ligament of right ankle, initial encounter (principal); F41.9 Anxiety disorder, unspecified; Z79.01 Long term (current) use of anticoagulants; Z79.899 Other long term (current) drug therapy; Z86.73 Personal history of transient ischemic attack (TIA), and cerebral infarction without residual deficits; X58.XXXA Exposure to other specified factors, initial encounter
CPT/HCPCS: 36415; 73590; 73610; 80053; 85025; 85610; 96372; 99283; J1170

== ENCOUNTER 2021-12-13 19:33 | Emergency (ER) | payer MEDICARE, BC ==
[2021-12-13] MEDS ORDERED: Sodium Chloride 0.9% 1,000 ML IV ONE ×2 (20:29→22:29)
[2021-12-13] MEDS ORDERED: Sodium Chloride 0.9% 10 ML Syringe FLUSH PRN (20:29)
[2021-12-13] MEDS ORDERED: Sodium Chloride 0.9% 2.5 ML Syringe FLUSH PRN (20:29)
[2021-12-13] MEDS ORDERED: fentaNYL 50 MCG/ML SDV IVPUSH ONE (20:31)
[2021-12-13] MEDS ORDERED: Ondansetron 4 MG/2 ML SDV IVPUSH ONE ×2 (20:31→22:27)
[2021-12-13 20:56] LABS: POTASSIUM,K 4.4 mmol/L (3.5-5.1)
[2021-12-13 20:59] LABS: ESTIMATED GFR 58.7 ml/min
[2021-12-13] MEDS ORDERED: methylPREDNISolone Sodium Succinate 125 MG/2 ML SDV IVPUSH ONE (21:18)
[2021-12-13] MEDS ORDERED: HYDROmorphone 1 MG/ML Syringe IVPUSH ONE (21:18)
[2021-12-14 00:30] VITALS: BP 153/91; PULSE 61
== END 2021-12-14 00:31 | disposition home or self-care (01) ==
LOC: MW.ED 19:33
DX: M32.9 Systemic lupus erythematosus, unspecified (principal); Z86.73 Personal history of transient ischemic attack (TIA), and cerebral infarction without residual deficits; Z79.01 Long term (current) use of anticoagulants
CPT/HCPCS: 36415; 71045; 80053; 81001; 84484; 85025; 85610; 96374; 96375; 96376; 99285; J1170; J2405; J2930; J3010; J7030

== ENCOUNTER 2022-05-12 14:06 | Emergency (ER) | payer MEDICARE, BC ==
[2022-05-12] MEDS ORDERED: Acetaminophen/HYDROcodone 325-5 MG Tab PO ONE (15:44)
[2022-05-12 16:53] VITALS: BP 133/51; PULSE 7
[2022-05-12] MEDS ORDERED: Diphtheria,Pertussis(Acell),Tetanus Vaccine 0.5 ML Syringe IM ONE (17:16)
[2022-05-12] MEDS ORDERED: Cephalexin 500 MG Cap PO ONE (17:25)
== END 2022-05-12 16:52 | disposition home or self-care (01) ==
LOC: MW.ED 14:06
DX: S61.235A Puncture wound without foreign body of left ring finger without damage to nail, initial encounter (principal); Z23 Encounter for immunization; Z79.01 Long term (current) use of anticoagulants; Z79.899 Other long term (current) drug therapy; I10 Essential (primary) hypertension; Z86.73 Personal history of transient ischemic attack (TIA), and cerebral infarction without residual deficits; W29.8XXA Contact with other powered hand tools and household machinery, initial encounter
CPT/HCPCS: 12001; 73140; 90471; 90715; 99283; A9270

== ENCOUNTER 2022-12-13 10:02 | Emergency (ER) | payer MEDICARE, BC ==
[2022-12-13] MEDS ORDERED: Sodium Chloride 0.9% 1,000 ML IV ONE (10:49)
[2022-12-13] MEDS ORDERED: Ondansetron 4 MG/2 ML SDV IVPUSH ONE (10:49)
[2022-12-13] MEDS ORDERED: Ketorolac 30 MG/ML SDV IVPUSH ONE (10:49)
[2022-12-13] MEDS ORDERED: Metoclopramide 10 MG/2 ML SDV IVPUSH ONE (10:49)
[2022-12-13] MEDS ORDERED: diphenhydrAMINE 50 MG/ML SDV IVPUSH ONE (10:49)
[2022-12-13 12:22] VITALS: BP 113/81; PULSE 59
== END 2022-12-13 12:49 | disposition home or self-care (01) ==
LOC: MW.ED 10:02
DX: G43.909 Migraine, unspecified, not intractable, without status migrainosus (principal); I10 Essential (primary) hypertension; Z86.718 Personal history of other venous thrombosis and embolism; Z79.01 Long term (current) use of anticoagulants; Z86.73 Personal history of transient ischemic attack (TIA), and cerebral infarction without residual deficits; Z79.899 Other long term (current) drug therapy
CPT/HCPCS: 70450; 96361; 96374; 96375; 99284; J1200; J1885; J2405; J2765; J7030

== ENCOUNTER 2024-01-27 19:42 | Emergency (ER) | payer MEDICARE, BC ==
[2024-01-27] MEDS: Ondansetron 4 MG/2 ML SDV IVPUSH ONE (20:21)
[2024-01-27] MEDS: Famotidine 20 MG/2 ML SDV IVPUSH ONE (20:21)
[2024-01-27] MEDS: Morphine 4 MG/ML Syringe IVPUSH ONE (20:21)
[2024-01-27 20:22] LABS: BASOPHILS ABSOLUTE AUTO 0.01 K/uL (0.00-0.20); BASOPHILS PERCENT AUTO 0.3 % (0.0-1.0); HEMATOCRIT 38.5 % (37.0-47.0); HEMOGLOBIN 14.1 g/dL (12.0-16.0); IMMATURE GRAN ABSOLUTE AUTO 0.01 K/uL (0.00-0.05); IMMATURE GRAN PERCENT AUTO 0.3 % (0.0-0.4); LYMPHOCYTES ABSOLUTE AUTO 0.62 K/uL (1.00-4.80); LYMPHOCYTES PERCENT AUTO 17.2 % (24.0-44.0); MEAN CORPUSCULAR HEMOGLOBIN 29.9 pg (28.0-32.0); MEAN CORPUSCULAR HGB CONC 36.6 g/dL (32.0-36.0); MEAN CORPUSCULAR VOLUME 81.7 fL (83.0-99.0); MEAN PLATELET VOLUME 11.8 fL (9.4-12.3); MONOCYTES ABSOLUTE AUTO 0.08 K/uL (0.00-0.80); MONOCYTES PERCENT AUTO 2.2 % (0.0-8.0); NEUTROPHILS ABSOLUTE AUTO 2.88 K/uL (1.80-7.70); PLATELET COUNT,PLT 91 K/uL (150-400); RED BLOOD CELL COUNT 4.71 M/uL (4.10-5.30)
[2024-01-27 20:28] LABS: INR 1.32 (0.86-1.11)
[2024-01-27 20:48] LABS: A/G RATIO 1.1 (0.9-1.6); ALANINE AMINOTRANSFERASE,ALT 34 IU/L (14-63); ALKALINE PHOSPHATASE 73 U/L (46-116); ASPARTATE AMNIOTRANSFERASE,AST 24 IU/L (15-37); BILIRUBIN TOTAL 1.5 mg/dL (0.2-1.0); BLOOD UREA NITROGEN,BUN 21 mg/dL (7.0-18.0); CALCIUM 9.1 mg/dL (8.5-10.1); CARBON DIOXIDE,CO2 26.3 mmol/L (21.0-32.0); CHLORIDE,CL 103 mmol/L (98-107); EST CRCL DRUG DOSING (CG) 60.91 mL/min; GLUCOSE RANDOM 263 mg/dL (74-106); POTASSIUM,K 4.8 mmol/L (3.5-5.1); PRO B-TYPE NATRIUR PEPT,BNPPRO 41 pg/mL (0-125); PROTEIN TOTAL,TP 7.6 g/dL (6.4-8.2); SODIUM,NA 137 mmol/L (136-145)
[2024-01-27 20:49] LABS: ESTIMATED GFR 67 mL/min (>60)
[2024-01-27] MEDS: HYDROmorphone 1 MG/ML Syringe IVPUSH ONE (21:38)
[2024-01-27 21:46] LABS: APPEARANCE,URINE CLEAR; BILIRUBIN,URINE NEGATIVE (NEGATIVE); COLOR,URINE YELLOW; GLUCOSE,URINE NEGATIVE (NEGATIVE); KETONES,URINE NEGATIVE (NEGATIVE); LEUKOCYTE ESTERASE,URINE TRACE (NEGATIVE); NITRITE,URINE NEGATIVE (NEGATIVE); OCCULT BLOOD,URINE NEGATIVE (NEGATIVE); PH,URINE 6.5 (5.0-8.0); PROTEIN,URINE TRACE mg/dL (NEGATIVE)
[2024-01-27 22:18] LABS: BACTERIA,URINE RARE (NEGATIVE); EPITHELIAL CELLS,URINE RARE (NONE-FEW); RBC,URINE 0-1 (0-2/HPF); WBC,URINE 0-3 (0-5/HPF)
[2024-01-27] MEDS: Nitroglycerin 0.4 MG Tab.SL SL PRN (22:29)
[2024-01-27 23:17] VITALS: BP 134/87; PULSE 65
== END 2024-01-27 23:17 | disposition home or self-care (01) ==
LOC: MW.ED 19:42
DX: R07.9 Chest pain, unspecified (principal); I10 Essential (primary) hypertension; Z86.73 Personal history of transient ischemic attack (TIA), and cerebral infarction without residual deficits; Z79.899 Other long term (current) drug therapy; Z79.84 Long term (current) use of oral hypoglycemic drugs; Z79.01 Long term (current) use of anticoagulants; Z79.02 Long term (current) use of antithrombotics/antiplatelets
CPT/HCPCS: 36415; 71045; 80053; 81001; 83880; 84484; 85025; 85610; 93005; 96374; 96375; 99285; A9270; J1170; J2270; J2405; J3490; 93010

== ENCOUNTER 2024-03-09 08:49 | Day surgery (SDC) | payer MEDICARE, BC ==
[~2024-03-09 08:49] MED LIST: Sodium Chloride 0.9% 10 ML Syringe FLUSH PRN; Sodium Chloride 0.9% 2.5 ML Syringe FLUSH PRN; Sodium Chloride 0.9% 20 ML SDV IV PRN
[2024-03-09] MEDS: Lactated Ringers 1,000 ML IV SCH (09:35)
[2024-03-09] MEDS ORDERED: Propofol 200 MG/20 ML SDV ONE ×3 (10:20→10:48)
[2024-03-09] MEDS ORDERED: Lidocaine 2% 5 ML SDV ONE (10:20)
[2024-03-09 12:29] VITALS: BP 108/67; PULSE 57
== END 2024-03-09 12:00 | disposition home or self-care (01) ==
LOC: MW.SDS 08:49
PROVIDERS: ATTEND Surgery
DX: D12.2 Benign neoplasm of ascending colon (principal); F41.9 Anxiety disorder, unspecified; K21.9 Gastro-esophageal reflux disease without esophagitis; I10 Essential (primary) hypertension; F32.A Depression, unspecified; F17.210 Nicotine dependence, cigarettes, uncomplicated; Z79.899 Other long term (current) drug therapy
CPT/HCPCS: 45385; 88305; J2704; J7120; 00811; J3490

== ENCOUNTER 2024-09-14 09:35 | Emergency (ER) | payer MEDICARE, BC ==
[2024-09-14] MEDS: Sodium Chloride 0.9% 1,000 ML IV ONE (10:36)
[2024-09-14] MEDS: Hydrocortisone Sodium Succinate 100 MG/2 ML SDV IVPUSH ONE (10:36)
[2024-09-14 10:43] LABS: BASOPHILS ABSOLUTE AUTO 0.02 K/uL (0.00-0.20); BASOPHILS PERCENT AUTO 0.4 % (0.0-1.0); EOSINOPHILS ABSOLUTE AUTO 0.01 K/uL (0.00-0.45); EOSINOPHILS PERCENT AUTO 0.2 % (0.0-6.0); HEMATOCRIT 36.1 % (37.0-47.0); HEMOGLOBIN 13.4 g/dL (12.0-16.0); IMMATURE GRAN ABSOLUTE AUTO 0.02 K/uL (0.00-0.05); IMMATURE GRAN PERCENT AUTO 0.4 % (0.0-0.4); LYMPHOCYTES ABSOLUTE AUTO 0.92 K/uL (1.00-4.80); LYMPHOCYTES PERCENT AUTO 17.4 % (24.0-44.0); MEAN CORPUSCULAR HEMOGLOBIN 29.5 pg (28.0-32.0); MEAN CORPUSCULAR HGB CONC 37.1 g/dL (32.0-36.0); MEAN CORPUSCULAR VOLUME 79.3 fL (83.0-99.0); MEAN PLATELET VOLUME 11.2 fL (9.4-12.3); MONOCYTES ABSOLUTE AUTO 0.22 K/uL (0.00-0.80); MONOCYTES PERCENT AUTO 4.2 % (0.0-8.0); NEUTROPHILS PERCENT AUTO 77.4 % (41.0-71.0); PLATELET COUNT,PLT 95 K/uL (150-400); RED BLOOD CELL COUNT 4.55 M/uL (4.10-5.30); WHITE BLOOD CELL COUNT,WBC 5.29 K/uL (3.9-11.3)
[2024-09-14] MEDS: HYDROmorphone 1 MG/ML Syringe IVPUSH ONE ×2 (10:46→10:52)
[2024-09-14] MEDS: Morphine 4 MG/ML Syringe IVPUSH ONE (10:52)
[2024-09-14 11:04] LABS: CARBON DIOXIDE,CO2 19.9 mmol/L (21.0-32.0); CREATININE 1.1 mg/dL (0.6-1.0); EST CRCL DRUG DOSING (CG) 55.37 mL/min; POTASSIUM,K 3.5 mmol/L (3.5-5.1)
[2024-09-14 12:55] VITALS: BP 133/91; PULSE 77
== END 2024-09-14 12:53 | disposition home or self-care (01) ==
LOC: MW.ED 09:35
DX: M32.9 Systemic lupus erythematosus, unspecified (principal); Z79.01 Long term (current) use of anticoagulants; Z79.899 Other long term (current) drug therapy; Z86.73 Personal history of transient ischemic attack (TIA), and cerebral infarction without residual deficits
CPT/HCPCS: 36415; 80048; 85025; 87428; 96361; 96374; 96375; 99284; J1171; J1720; J7030